=== PATIENT | male | born 1940 | race Caucasian/White ===

== ENCOUNTER 2022-06-23 14:15 | Outpatient (RCR) | payer MEDICARE, SELFPAY ==
[2022-06-09 14:28] VITALS: BP 169/79; PULSE 77; TEMP 36.2; BMI 26.4
--- NOTE | 2022-06-09 15:52 | HP.PCM_ITS ---
History of Present Illness Date of Service: 06/09/22 Chief Complaint: Ulcers on right leg and foot History of Wound: Patient is a 81 male who presents for evaluation of the ulcer on his right anterior leg and right dorsal foot. He states that they opened up 3 weeks ago. He does has issues with leg edema for the past couple months. He went to his PCP, Dr. Zaldivar, on 06/02/22 and he started him on Augmentin, ordered vascular studies and referred him to the wound center. Patient has been covering the ulcer with gauze. He has a history of cardiac stent, DM type 2 diet controlled, BPH, HTN, Cardiac stents, uses an inhaler, smokes little cigars 4- 5/day x 65 years. 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 He states that they will be moving to [place] sometime in the next several months to be closer to their daughter. He denies any fever, chills, nausea, vomiting. He states his appetite is good. Progress of Wound: Right anterior leg and right dorsal foot ulcers are superficial, weeping and very painful. [facility] Medical History Bilateral lower extremity edema Diabetes type 2, controlled Home Medications amoxicillin-pot clavulanate 06/09/22 [History Last Taken Unknown] finasteride 5 mg tablet 5 mg PO DAILY 06/09/22 [History Last Taken Unknown] furosemide 20 mg tablet 20 mg PO BID 06/09/22 [History Last Taken Unknown] metoprolol succ 50 mg-hydrochlorothiazide 12.5 mg tablet,ext.rel 24 hr tab PO 06/09/22 [History Last Taken Unknown] mirabegron 25 mg tablet,extended release 24 hr (Myrbetriq) 25 mg PO DAILY 06/09/22 [History Last Taken Unknown] ramipril 10 mg capsule 10 mg PO BID 06/09/22 [History Last Taken Unknown] tamsulosin 0.4 mg capsule 0.4 mg PO DAILY 06/09/22 [History Last Taken Unknown] Family History (Updated 06/11/22 @ 15:37 by Susi Martines NP, [employer]CIAL SERVICES EDUCATION CONSULTANT-C) Mother Diabetes Father Myocardial infarction Brother Myocardial infarction Surgical History (Updated 06/11/22 @ 15:36 by Susi Martines NP, FINANCIAL SERVICES EDUCATION CONSULTANT-C) History of heart artery stent History of left inguinal hernia repair History of vasectomy Social History Smoking Status: Current every day smoker Tobacco: How many years used: 65 Smokeless tobacco user: other alcohol intake: current alcohol intake frequency: a few times a week ROS Constitutional Constitutional: Denies chills, fever(s), frequent falls or headache(s) Eyes Eyes: Reports requires corrective lenses ENT HEENT: Reports none Cardiovascular Cardiovascular: Reports as per HPI Respiratory/Chest Respiratory/Chest: Reports as per HPI; Denies cough or dyspnea Gastrointestinal Gastrointestinal: Reports none Genitourinary Genitourinary: Reports as per HPI, nocturia and urinary frequency Musculoskeletal Musculoskeletal: Reports as per HPI Integumentary Integumentary: Reports skin ulcer Neurologic Neurologic: Reports as per HPI Psychiatric Psychiatric: Reports none Vital Signs Vital Signs Vital Signs: 06/09/22 14:28 Temperature 97.1 F L Temperature Source Temporal Pulse Rate 77 Blood Pressure 169/79 H Blood Pressure Mean 109 Blood Pressure Source Monitor Weight Weight: 195 lb Body Mass Index (BMI) 26.4 Physical Exam Const alert, oriented x3 and no apparent distress General Appearance: cooperative Orientation / Consciousness: awake HEENT normocephalic Resp normal respiratory effort and normal air movement Auscultation: wheezes expiratory wheezes, inspiratory wheezes, scattered wheezes and throughout Cardio regular rate and regular rhythm GI soft to palpation and non-tender Extremity full ROM and normal capillary refill Extremity Narrative: bilateral edema +3, legs are weepy Skin Skin Narrative: left posterior leg has an area with dry, flaky skin. It is from an old blister from his edema. Wound Narrative: Right anterior lower leg ulcer is superficial, shiny, pink and painful to touch, it is oozing clear serous fluid. Right dorsal foot ulcer is superfial, pink and shiny. Psych mental status grossly normal and thought process normal Appearance: grossly normal Debridement Note Debridement Note Wound debrided: anterior leg ulcer Laterality: Right Type of Debridement: Excisional debridement Anesthesia Used: 4% Lidocaine Solution and 5% Lidocaine Gel Depth: Down to and including healthy tissue and in the subcutaneous layer Percentage of wound debrided: 100 Instrument Used: 7mm curette Tissue Removed: Devitalized tissue and slough Severity: Fat Layer Exposed Amount of bleeding with debridement: Mild Bleeding Controlled with: Pressure and Compression and gauze Patient tolerated procedure: Patient tolerated procedure well Post-Debridement Measurements and Additional Note: Post-Debridement Measurements/Treatment - Nurse 1 - General Ulcer Assessment Start: 06/09/22 14:27 Freq: Status: Active Protocol: SHU Activity Type Activity Date Activity User E-sign Co-sign Detail Recorded Client Recorded Date Recorded By Document 06/09/22 14:28 MÓNICA [id number] 06/09/22 14:33 DC 06/09/22 14:28 - Today's Visit Information Type of service Initial Visit Arrival Mode Ambulatory,Cane Patient Identification Verified (Name & Yes ) Height and Weight Height 6 ft Weight 195 lb Weight in Pounds 195.0 lbs Weight Measurement Method Estimated by Patient Body Mass Index (BMI) 26.4 BMI Classification Overweight BSA - Armand 2.11 Vital Signs Temperature (97.8 F-99.1 F) 97.1 F L Temperature Source Temporal Pulse Rate (60-100) 77 Pulse Location Monitor Blood Pressure (90/60-120/80) 169/79 H Blood Pressure Mean 109 Source Monitor Pain Scale: 0-10 Numeric Is Patient Pain Free? Yes - Nurse 1 - General Ulcer Measurement Start: 06/09/22 14:27 Freq: Status: Active Protocol: Activity Type Activity Date Activity User E-sign Co-sign Detail Recorded Client Recorded Date Recorded By Document 06/09/22 14:28 MÓNICA [id number] 06/09/22 14:33 DC 06/09/22 14:28 Wound Center Nurse 1 #2 R dorsal foot -Combined with other wound No -Current Size (cm) - Length 4.7 -Current Size (cm) - Width 5.3 -Current Size (cm) - Depth 0.1 -Total Square Cm 24.91 -Date of Last Picture (Recall this 06/09/22 field) -Photo Taken Yes -Tunneling No -Undermining/Tunneling No -Circular Undermining No -Classification - Thickness Partial Thickness -Change in Wound Grade/Stage No -Exudate Amt Large -Exudate Type Yellow/Green -Wound Margin Distinct, Outline Attached -Granulation Amt None Present (0 %) -Slough/Fibrin Yes -Necrosis Amt Medium (34-66%) -Necrotic Tissue Type Adherent Slough -Structure Exposed N/A -Texture (Herlinda-wound Skin Appearance) Assessed, Excoriation -Moisture (Herlinda-wound Skin Appearance) Assessed, Weeping -Color (Herlinda-wound Skin Appearance) No Abnormality, Assessed -Temperature (Herlinda-wound Skin No Abnormality Appearance) (Pt Warm) -Tenderness on Palpation (Herlinda-wound No Skin Appearance) -Ulcer Cleansing Soap and Water -Foul Odor after Cleansing No -Anesthetic Used 4% Lidocaine Solution #1 RLE -Combined with other wound No -Current Size (cm) - Length 14.7 -Current Size (cm) - Width 15.1 -Current Size (cm) - Depth 0.1 -Total Square Cm 221.97 -Date of Last Picture (Recall this 06/09/22 field) -Photo Taken Yes -Epithelialization None Present -Tunneling No -Undermining/Tunneling No -Circular Undermining No -Change in Wound Grade/Stage No -Exudate Amt Large -Exudate Type Serosanguineous -Wound Margin Distinct, Outline Attached -Granulation Amt None Present (0 %) -Slough/Fibrin No -Necrosis Amt Small (1-33%) -Necrotic Tissue Type Adherent Slough -Structure Exposed N/A -Texture (Herlinda-wound Skin Appearance) Assessed, Excoriation -Moisture (Herlinda-wound Skin Appearance) Assessed, Weeping -Color (Herlnida-wound Skin Appearance) No Abnormality, Assessed -Temperature (Herlinda-wound Skin No Abnormality Appearance) (Pt Warm) -Tenderness on Palpation (Herlinda-wound No Skin Appearance) -Ulcer Cleansing Soap and Water -Foul Odor after Cleansing No -Anesthetic Used 4% Lidocaine Solution Lower Limb Edema Present No Right Calf (cm) 43.4 Right Ankle (cm) 28.2 Left Calf (cm) 38 Left Ankle (cm) 24.4 WC - Nurse 2 - General Ulcer CM Notes Start: 06/09/22 14:27 Freq: Status: Active Protocol: Activity Type Activity Date Activity User E-sign Co-sign Detail Recorded Client Recorded Date Recorded By Document 06/09/22 14:52 MW [id number] 06/09/22 15:02 MW 06/09/22 14:52 Wound Center Nurse 2 #2 R dorsal foot -Time 14:52 -Correct Patient Yes -Correct Side, Site, Position Yes -Correct Procedure Yes -Procedure Performed Yes -Type of Procedure Debridement -Clinical Debridement Subcutaneous -Tissue Removed Subcutaneous -Post Debridement (cm) - Length 7.5 -Post Debridement (cm) - Width 6.0 -Post Debridement (cm) - Depth 0.1 -Total Square (Post) (cm) 45.00 -Area of Debridement (cm) - Length 7.5 -Area of Debridement (cm) - Width 6.0 -Total Square (Area) (cm) 45.00 -Tunneling No -Undermining/Tunneling No -Circular Undermining No -Wound/Ulcer Outcome Not Healed -Ulcer Cleansing Rinsed/ Irrigated with Saline -Foul Odor after Cleansing No -Bioengineered Tissue No -Bleeding Controlled with Pressure -Treatment Response Procedure Tolerated Well -Offloading No -Debridement - Subq, 1st 20sq cm Yes -Debridement, SubQ, ea addt'l 20sq cm 2 or part thereof #1 RLE -Time 14:53 -Correct Patient Yes -Correct Side, Site, Position Yes -Correct Procedure Yes -Procedure Performed Yes -Type of Procedure Debridement -Clinical Debridement Subcutaneous -Tissue Removed Subcutaneous -Post Debridement (cm) - Length 15.5 -Post Debridement (cm) - Width 14.5 -Post Debridement (cm) - Depth 0.1 -Total Square (Post) (cm) 224.75 -Area of Debridement (cm) - Length 15.5 -Area of Debridement (cm) - Width 14.5 -Total Square (Area) (cm) 224.75 -Tunneling No -Undermining/Tunneling No -Circular Undermining No -Wound/Ulcer Outcome Not Healed -Ulcer Cleansing Rinsed/ Irrigated with Saline -Foul Odor after Cleansing No -Bioengineered Tissue No -Bleeding Controlled with Pressure -Treatment Response Procedure Tolerated Well -Offloading No -Debridement - Subq, 1st 20sq cm No -Debridement, SubQ, ea addt'l 20sq cm 11 or part thereof Pain Scale: 0-10 Numeric Is Patient Pain Free? Yes WC - Nurse 3 - General Ulcer D/C NN Start: 06/09/22 14:27 Freq: Status: Active Protocol: Activity Type Activity Date Activity User E-sign Co-sign Detail Recorded Client Recorded Date Recorded By Document 06/09/22 15:15 AK [id number] 06/09/22 15:21 AK Document 06/09/22 15:20 [facility] [id number] 06/09/22 15:21 BMF 06/09/22 06/09/22 15:15 15:20 Wound Care Nurse 3 #2 R dorsal foot -Ulcer Cleansing Soap and Water Rinsed/ Irrigated with Saline -Foul Odor after Cleansing No No -Negative Pressure Wound Therapy N/A -Primary Dressing Applied Aquacel AG 4x4 Aquacel AG 4x4, Optilok 6.5x10 -Primary Dressing Covered/Secured with Dry Gauze & Dry Gauze & Roll Gauze, Roll Gauze, Secured with Secured with Tape Tape -Aquacel AG 4x4 4 1 -Optilok 6.5x10 1 #1 RLE -Ulcer Cleansing Soap and Water Rinsed/ Irrigated with Saline -Foul Odor after Cleansing No No -Negative Pressure Wound Therapy N/A -Primary Dressing Applied Aquacel AG 4x4 Aquacel AG 4x4, Optilok 8x12 -Primary Dressing Covered/Secured with Dry Gauze & Dry Gauze & Roll Gauze, Roll Gauze, Secured with Secured with Tape Tape -Aquacel AG 4x4 0 0 -Optilok 8x12 1 Right -Tubular Bandage Single Layer -Size of Tubigrip Used Size F -Size F ($) 2 -Other SENT EXTRA D/T ^ DRAINAGE Treatment Response Procedure Tolerated Well Pain Scale: 0-10 Numeric Is Patient Pain Free? Yes Yes WC - Visit Discharge Discharge Condition Stable Stable Ambulatory Status Ambulatory,Cane Ambulatory,Cane ,Unsteady Transportation Private Auto Private Auto Medication Reconcilliation completed & Yes provided to patient/care provider Clinical Summary of Care Provided Yes Additional Wound Wound debrided: doral foot ulcer Laterality: Right Type of Debridement: Excisional debridement Anesthesia Used: 4% Lidocaine Solution and 5% Lidocaine Gel Depth: Down to and including healthy tissue and in the subcutaneous layer Percentage of wound debrided: 100 Instrument Used: 5mm curette Tissue Removed: Devitalized tissue and slough Severity: Fat Layer Exposed Amount of bleeding with debridement: Mild Bleeding Controlled with: Pressure and Compression and gauze Patient tolerated procedure: Patient tolerated procedure well Charges/Coding Visit Charges Office Visits / Consults: [id number] OV L4 New (25 modifier) Procedures Integumentary [id number]: [id number] Elen subq tissue 20 sq cm/< Add On Codes: [id number] Elen subq tissue add-on (x13) Assessment/Plan Assessment/Plan (1) Ulcer of right lower extremity: CODE(S): L97.919 - Non-pressure chronic ulcer of unspecified part of right lower leg with unspecified severity (2) Ulcer of right foot limited to breakdown of skin: CODE(S): L97.511 - Non-pressure chronic ulcer of other part of right foot limited to breakdown of skin (3) Bilateral lower extremity edema: CODE(S): R60.0 - Localized edema (4) Diabetes type 2, controlled: CODE(S): E11.9 - Type 2 diabetes mellitus without complications (5) Cigar smoker: CODE(S): F17.290 - Nicotine dependence, other tobacco product, uncomplicated PLAN: Plan Patient was evaluated at the wound center today. Subcutaneous debridement was performed. He has had venous studies done at another hospital. We will attempt to get a co py of those results. He states he has ordered arterial studies but they have not been approved by insurance. We will also order arterial studies to be done. Wound care - Aquacel-Ag covered by super absorber/ABD daily to right dorsal foot and right anterior leg ulcer. To left posterior leg, place lotion daily to dry, flaky skin. Compression with be single layer tubigrip Encouraged elevating legs when sitting and avoid standing for long periods of time. Increase protein intake and start taking Vitamin C 1,000mg daily. Follow up one week.
[2022-06-16 14:07] VITALS: BP 113/63; PULSE 73; TEMP 36.1; BMI 26.4
--- NOTE | 2022-06-16 16:00 | PN.PCM_ITS ---
History of Present Illness Date of Service: 06/16/22 Chief Complaint: Ulcers on right leg and foot History of Wound: Patient is a 81 male who presents for evaluation of the ulcer on his right anterior leg and right dorsal foot. He states that they opened up 3 weeks ago. He does has issues with leg edema for the past couple months. He went to his PCP, Dr. Zaldivar, on 06/02/22 and he started him on Augmentin, ordered vascular studies and referred him to the wound center. Patient has been covering the ulcer with gauze. He has a history of cardiac stent, DM type 2 diet controlled, BPH, HTN, Cardiac stents, uses an inhaler, smokes little cigars 4- 5/day x 65 years. 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 He states that they will be moving to [place] sometime in the next several months to be closer to their daughter. Wound care - Aquacel-Ag topped by gauze daily after washing with soap and water. Will use CHAVEZ wrap for compression. Venous study done at [place] was negative for DVT. He denies any fever, chills, nausea, vomiting. He states his appetite is good. Progress of Wound: Right anterior leg and right dorsal foot cluster ulcers are superficial, weeping and very painful. Objective Data Objective Data Vital Signs: Vital Signs Temp Pulse BP 97.0 F L 73 113/63 06/16/22 14:07 06/16/22 14:07 06/16/22 14:07 Weight: 195 lb Body Mass Index (BMI) 26.4 Charges/Coding Procedures Integumentary 111xxx-113xx: [id number] Elen subq tissue 20 sq cm/< Add On Codes: 72949 Elen subq tissue add-on (x 10) Physical Exam Const alert and oriented x3 General Appearance: cooperative HEENT normocephalic Resp normal respiratory effort Cardio regular rate Extremity full ROM and normal capillary refill Extremity Narrative: bilateral edema +2 Skin Wound Narrative: Right anterior lower leg ulcer is superficial, shiny, pink and painful to touch, it is oozing clear serous fluid. Right dorsal foot ulcer is shiny pink with serous drainage. Psych thought process normal Appearance: grossly normal Debridement Note Debridement Note Wound debrided: anterior leg ulcer Laterality: Right Type of Debridement: Excisional debridement Anesthesia Used: 4% Lidocaine Solution and 5% Lidocaine Gel Depth: Down to and including healthy tissue and in the subcutaneous layer Percentage of wound debrided: 100 Instrument Used: 5mm curette Tissue Removed: Devitalized tissue and slough Severity: Fat Layer Exposed Amount of bleeding with debridement: Mild Bleeding Controlled with: Pressure and Compression and gauze Patient tolerated procedure: Patient tolerated procedure well Post-Debridement Measurements and Additional Note: Post-Debridement Measurements/Treatment MAUREEN - Nurse 1 - General Ulcer Assessment Start: 06/09/22 14:27 Freq: Status: Active Protocol: SHU Activity Type Activity Date Activity User E-sign Co-sign Detail Recorded Client Recorded Date Recorded By Document 06/09/22 14:28 AK [id number] 06/09/22 14:33 AK Document 06/16/22 14:07 DANIELITO [id number] 06/16/22 14:15 DANIELITO 06/09/22 06/16/22 14:28 14:07 MAUREEN - Today's Visit Information Type of service Initial Visit Follow-up Visit (Physician/MECHANICAL SERVICE REPRESENTATIVE ) Arrival Mode Ambulatory,Cane Ambulatory Patient Identification Verified (Name & Yes Yes ) Height and Weight Height 6 ft Weight 195 lb Weight in Pounds 195.0 lbs Weight Measurement Method Estimated by Patient Body Mass Index (BMI) 26.4 26.4 BMI Classification Overweight Overweight BSA - Armand 2.11 Vital Signs Temperature (97.8 F-99.1 F) 97.1 F L 97.0 F L Temperature Source Temporal Temporal Pulse Rate (60-100) 77 73 Pulse Location Monitor Monitor Blood Pressure (90/60-120/80) 169/79 H 113/63 Blood Pressure Mean (mm Hg) 109 79 Source Monitor Monitor Position Sitting Blood Pressure Location Right Arm History Since Last Visit- (Skip if this is Patient's initial visit) Have you changed medications since your No last visit? Any new allergies or adverse reactions No Had a fall/change in ADL's that may No increase risk of falls Signs or symptoms of abuse and/or No neglect since last visit Have you been in the hospital since your No last visit? Has dressing in place as prescribed Yes Has offloadiing in place as prescribed N/A Experienced any changes in pain level or No management Left Footwear Regular Shoe Right Footwear Regular Shoe Pain Scale: 0-10 Numeric Is Patient Pain Free? Yes Yes MAUREEN Cardenas Nurse 1 - General Ulcer Measurement Start: 06/09/22 14:27 Freq: Status: Active Protocol: Activity Type Activity Date Activity User E-sign Co-sign Detail Recorded Client Recorded Date Recorded By Document 06/09/22 14:28 AK [id number] 06/09/22 14:33 AK Document 06/16/22 14:07 DANIELITO [id number] 06/16/22 14:15 KR 06/09/22 06/16/22 14:28 14:07 Wound Center Nurse 1 #2 R dorsal foot -Combined with other wound No -Current Size (cm) - Length 4.7 6 -Current Size (cm) - Width 5.3 6 -Current Size (cm) - Depth 0.1 0.1 -Total Square Cm 24.91 36 -Date of Last Picture (Recall this 06/09/22 field) -Photo Taken Yes -Tunneling No -Undermining/Tunneling No -Circular Undermining No -Classification - Thickness Partial Thickness -Change in Wound Grade/Stage No -Exudate Amt Large Medium -Exudate Type Yellow/Green Serosanguineous -Wound Margin Distinct, Distinct, Outline Outline Attached Attached -Granulation Amt None Present (0 Large (67-100%) %) -Granulation Quality Red -Slough/Fibrin Yes -Necrosis Amt Medium (34-66%) Medium (34-66%) -Necrotic Tissue Type Adherent Slough Adherent Slough -Structure Exposed N/A -Texture (Herlinda-wound Skin Appearance) Assessed, Assessed, Excoriation Scarring -Moisture (Herlinda-wound Skin Appearance) Assessed, No Abnormality, Weeping Assessed, Maceration -Color (Herlinda-wound Skin Appearance) No Abnormality, No Abnormality, Assessed Assessed -Temperature (Herlinda-wound Skin No Abnormality No Abnormality Appearance) (Pt Warm) (Pt Warm) -Tenderness on Palpation (Herlinda-wound No No Skin Appearance) -Ulcer Cleansing Soap and Water Rinsed/ Irrigated with Saline -Foul Odor after Cleansing No No -Anesthetic Used 4% Lidocaine 5% Lidocaine Solution Gel #1 RLE -Combined with other wound No -Current Size (cm) - Length 14.7 11.5 -Current Size (cm) - Width 15.1 10 -Current Size (cm) - Depth 0.1 0.2 -Total Square Cm 221.97 115.0 -Date of Last Picture (Recall this 06/09/22 field) -Photo Taken Yes -Epithelialization None Present -Tunneling No -Undermining/Tunneling No -Circular Undermining No -Change in Wound Grade/Stage No -Exudate Amt Large Large -Exudate Type Serosanguineous Serosanguineous -Wound Margin Distinct, Distinct, Outline Outline Attached Attached -Granulation Amt None Present (0 Medium (34-66%) %) -Granulation Quality Red -Slough/Fibrin No -Necrosis Amt Small (1-33%) Large (67-100%) -Necrotic Tissue Type Adherent Slough Adherent Slough -Structure Exposed N/A -Texture (Herlinda-wound Skin Appearance) Assessed, Assessed, Excoriation Scarring -Moisture (Herlinda-wound Skin Appearance) Assessed, Assessed, Weeping Maceration -Color (Herlinda-wound Skin Appearance) No Abnormality, No Abnormality, Assessed Assessed -Temperature (Herlinda-wound Skin No Abnormality No Abnormality Appearance) (Pt Warm) (Pt Warm) -Tenderness on Palpation (Herlinda-wound No No Skin Appearance) -Ulcer Cleansing Soap and Water Rinsed/ Irrigated with Saline -Foul Odor after Cleansing No No -Anesthetic Used 4% Lidocaine 4% Lidocaine Solution Solution,5% Lidocaine Gel Lower Limb Edema Present No Right Calf (cm) 43.4 Right Ankle (cm) 28.2 Left Calf (cm) 38 Left Ankle (cm) 24.4 WC - Nurse 2 - General Ulcer CM Notes Start: 06/09/22 14:27 Freq: Status: Active Protocol: Activity Type Activity Date Activity User E-sign Co-sign Detail Recorded Client Recorded Date Recorded By Document 06/09/22 14:52 MW [id number] 06/09/22 15:02 MW Document 06/16/22 14:39 MW [id number] 06/16/22 14:50 MW 06/09/22 06/16/22 14:52 14:39 Wound Center Nurse 2 #2 R dorsal foot -Time 14:52 14:41 -Correct Patient Yes Yes -Correct Side, Site, Position Yes Yes -Correct Procedure Yes Yes -Procedure Performed Yes Yes -Type of Procedure Debridement Debridement -Clinical Debridement Subcutaneous Subcutaneous -Tissue Removed Subcutaneous Subcutaneous -Post Debridement (cm) - Length 7.5 6.0 -Post Debridement (cm) - Width 6.0 4.5 -Post Debridement (cm) - Depth 0.1 0.1 -Total Square (Post) (cm) 45.00 27.00 -Area of Debridement (cm) - Length 7.5 6.0 -Area of Debridement (cm) - Width 6.0 4.5 -Total Square (Area) (cm) 45.00 27.00 -Tunneling No No -Undermining/Tunneling No No -Circular Undermining No No -Wound/Ulcer Outcome Not Healed Not Healed -Ulcer Cleansing Rinsed/ Rinsed/ Irrigated with Irrigated with Saline Saline -Foul Odor after Cleansing No No -Bioengineered Tissue No No -Bleeding Controlled with Pressure Pressure -Treatment Response Procedure Procedure Tolerated Well Tolerated Well -Offloading No No -Debridement - Subq, 1st 20sq cm Yes Yes -Debridement, SubQ, ea addt'l 20sq cm 2 or part thereof #1 RLE -Time 14:53 14:42 -Correct Patient Yes Yes -Correct Side, Site, Position Yes Yes -Correct Procedure Yes Yes -Procedure Performed Yes Yes -Type of Procedure Debridement Debridement -Clinical Debridement Subcutaneous Subcutaneous -Tissue Removed Subcutaneous Subcutaneous -Post Debridement (cm) - Length 15.5 14.0 -Post Debridement (cm) - Width 14.5 12.5 -Post Debridement (cm) - Depth 0.1 0.1 -Total Square (Post) (cm) 224.75 175.00 -Area of Debridement (cm) - Length 15.5 14.0 -Area of Debridement (cm) - Width 14.5 12.5 -Total Square (Area) (cm) 224.75 175.00 -Tunneling No No -Undermining/Tunneling No No -Circular Undermining No No -Wound/Ulcer Outcome Not Healed Not Healed -Ulcer Cleansing Rinsed/ Rinsed/ Irrigated with Irrigated with Saline Saline -Foul Odor after Cleansing No No -Bioengineered Tissue No No -Bleeding Controlled with Pressure Pressure -Treatment Response Procedure Procedure Tolerated Well Tolerated Well -Offloading No No -Debridement - Subq, 1st 20sq cm No No -Debridement, SubQ, ea addt'l 20sq cm 11 8 or part thereof Pain Scale: 0-10 Numeric Is Patient Pain Free? Yes Yes WC - Nurse 3 - General Ulcer D/C NN Start: 06/09/22 14:27 Freq: Status: Active Protocol: Activity Type Activity Date Activity User E-sign Co-sign Detail Recorded Client Recorded Date Recorded By Document 06/09/22 15:15 IA [id number] 06/09/22 15:21 IA Document 06/09/22 15:20 [facility] [id number] 06/09/22 15:21 [facility] 06/09/22 06/09/22 15:15 15:20 Wound Care Nurse 3 #2 R dorsal foot -Ulcer Cleansing Soap and Water Rinsed/ Irrigated with Saline -Foul Odor after Cleansing No No -Negative Pressure Wound Therapy N/A -Primary Dressing Applied Aquacel AG 4x4 Aquacel AG 4x4, Optilok 6.5x10 -Primary Dressing Covered/Secured with Dry Gauze & Dry Gauze & Roll Gauze, Roll Gauze, Secured with Secured with Tape Tape -Aquacel AG 4x4 4 1 -Optilok 6.5x10 1 #1 RLE -Ulcer Cleansing Soap and Water Rinsed/ Irrigated with Saline -Foul Odor after Cleansing No No -Negative Pressure Wound Therapy N/A -Primary Dressing Applied Aquacel AG 4x4 Aquacel AG 4x4, Optilok 8x12 -Primary Dressing Covered/Secured with Dry Gauze & Dry Gauze & Roll Gauze, Roll Gauze, Secured with Secured with Tape Tape -Aquacel AG 4x4 0 0 -Optilok 8x12 1 Right -Tubular Bandage Single Layer -Size of Tubigrip Used Size F -Size F ($) 2 -Other SENT EXTRA D/T ^ DRAINAGE Treatment Response Procedure Tolerated Well Pain Scale: 0-10 Numeric Is Patient Pain Free? Yes Yes WC - Visit Discharge Discharge Condition Stable Stable Ambulatory Status Ambulatory,Cane Ambulatory,Cane ,Unsteady Transportation Private Auto Private Auto Medication Reconcilliation completed & Yes provided to patient/care provider Clinical Summary of Care Provided Yes Additional Wound Wound debrided: doral foot ulcer Laterality: Right Type of Debridement: Excisional debridement Anesthesia Used: 4% Lidocaine Solution and 5% Lidocaine Gel Depth: Down to and including healthy tissue and in the subcutaneous layer Percentage of wound debrided: 100 Instrument Used: 5mm curette Tissue Removed: Devitalized tissue and slough Severity: Fat Layer Exposed Amount of bleeding with debridement: Mild Bleeding Controlled with: Pressure and Compression and gauze Patient tolerated procedure: Patient tolerated procedure well Assessment/Plan Assessment/Plan (1) Ulcer of right lower extremity: CODE(S): L97.919 - Non-pressure chronic ulcer of unspecified part of right lower leg with unspecified severity (2) Ulcer of right foot limited to breakdown of skin: CODE(S): L97.511 - Non-pressure chronic ulcer of other part of right foot limited to breakdown of skin (3) Bilateral lower extremity edema: CODE(S): R60.0 - Localized edema (4) Diabetes type 2, controlled: CODE(S): E11.9 - Type 2 diabetes mellitus without complications (5) Cigar smoker: CODE(S): F17.290 - Nicotine dependence, other tobacco product, uncomplicated PLAN: Plan Patient was evaluated at the wound center today. Subcutaneous debridement was performed. He has had venous studies done in [place], they showed not DVT. He states he had arterial studies yesterday, we will try to get results. Wound care - Aquacel-Ag covered by super absorber/ABD daily to right dorsal foot and right anterior leg cluster ulcers. Compression with be CHAVEZ wrap since he is having difficulty getting the tubigrip on himself. Encouraged elevating legs when sitting and avoid standing for long periods of time. Increase protein intake and start taking Vitamin C 1,000mg daily. Follow up one week.
[2022-06-23 14:32] VITALS: BP 108/66; PULSE 61; TEMP 36.6; BMI 26.4
--- NOTE | 2022-06-23 16:08 | PN.PCM_ITS ---
History of Present Illness Date of Service: 06/23/22 Chief Complaint: Ulcers on right leg and foot History of Wound: Patient is a 81 male who presents for evaluation of the ulcer on his right anterior leg and right dorsal foot. He states that they opened up 3 weeks ago. He does has issues with leg edema for the past couple months. He went to his PCP, Dr. Zaldivar, on 06/02/22 and he started him on Augmentin, ordered vascular studies and referred him to the wound center. Patient has been covering the ulcer with gauze. He has a history of cardiac stent, DM type 2 diet controlled, BPH, HTN, Cardiac stents, uses an inhaler, smokes little cigars 4- 5/day x 65 years. 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 He states that they will be moving to [place] sometime in the next several months to be closer to their daughter. Wound care - Aquacel-Ag topped by gauze daily after washing with soap and water. Will use PARTH wrap for compression. Venous study done at [facility] was negative for DVT. He denies any fever, chills, nausea, vomiting. He states his appetite is good. Progress of Wound: Right anterior leg and right dorsal foot cluster ulcers are superficial, weeping and very painful. Objective Data Objective Data Vital Signs: Vital Signs Temp Pulse BP 97.8 F 61 108/66 06/23/22 14:32 06/23/22 14:32 06/23/22 14:32 Weight: 195 lb Body Mass Index (BMI) 26.4 Charges/Coding Procedures Integumentary 111xxx-113xx: 88177 Elen subq tissue 20 sq cm/< Add On Codes: 33178 Elen subq tissue add-on (x6) Physical Exam Const alert and oriented x3 General Appearance: cooperative HEENT normocephalic Resp normal respiratory effort Cardio regular rate Extremity full ROM and normal capillary refill Extremity Narrative: bilateral edema +2 Skin Wound Narrative: Right anterior lower leg ulcer is superficial, shiny, pink and painful to touch, it is oozing clear serous fluid. Right dorsal foot ulcer is shiny pink with serous drainage. Neuro CN's II-XII intact bilaterally Psych thought process normal Appearance: grossly normal Debridement Note Debridement Note Wound debrided: anterior leg ulcer Laterality: Right Type of Debridement: Excisional debridement Anesthesia Used: 4% Lidocaine Solution and 5% Lidocaine Gel Depth: Down to and including healthy tissue and in the subcutaneous layer Percentage of wound debrided: 100 Instrument Used: 5mm curette Tissue Removed: Devitalized tissue and slough Severity: Fat Layer Exposed Amount of bleeding with debridement: Mild Bleeding Controlled with: Pressure and Compression and gauze Patient tolerated procedure: Patient tolerated procedure well Post-Debridement Measurements and Additional Note: Post-Debridement Measurements/Treatment WC - Nurse 1 - General Ulcer Assessment Start: 06/09/22 14:27 Freq: Status: Active Protocol: SHU Activity Type Activity Date Activity User E-sign Co-sign Detail Recorded Client Recorded Date Recorded By Document 06/09/22 14:28 AK [id number] 06/09/22 14:33 AK Document 06/16/22 14:07 KR [id number] 06/16/22 14:15 KR Document 06/23/22 14:32 KR [id number] 06/23/22 14:36 KR 06/09/22 06/16/22 06/23/22 14:28 14:07 14:32 WC - Today's Visit Information Type of service Initial Visit Follow-up Visit Follow-up Visit (Physician/TRAVELING OPERATOR (Physician/TRAVELING OPERATOR ) ) Arrival Mode Ambulatory,Cane Ambulatory Ambulatory,Cane Patient Identification Verified (Name & Yes Yes Yes ) Height and Weight Height 6 ft Weight 195 lb Weight in Pounds 195.0 lbs Weight Measurement Method Estimated by Patient Body Mass Index (BMI) 26.4 26.4 26.4 BMI Classification Overweight Overweight Overweight BSA - Armand 2.11 Vital Signs Temperature (97.8 F-99.1 F) 97.1 F L 97.0 F L 97.8 F Temperature Source Temporal Temporal Temporal Pulse Rate (60-100) 77 73 61 Pulse Location Monitor Monitor Monitor Blood Pressure (90/60-120/80) 169/79 H 113/63 108/66 Blood Pressure Mean (mm Hg) 109 79 80 Source Monitor Monitor Monitor Position Sitting Semi-Fowlers Blood Pressure Location Right Arm Right Arm History Since Last Visit- (Skip if this is Patient's initial visit) Have you changed medications since your No No last visit? Any new allergies or adverse reactions No No Had a fall/change in ADL's that may No No increase risk of falls Signs or symptoms of abuse and/or No No neglect since last visit Have you been in the hospital since your No No last visit? Has dressing in place as prescribed Yes Yes Has compression in place as prescribed Yes Has offloadiing in place as prescribed N/A N/A Experienced any changes in pain level or No No management Left Footwear Regular Shoe Regular Shoe Right Footwear Regular Shoe Regular Shoe Pain Scale: 0-10 Numeric Is Patient Pain Free? Yes Yes Yes WC - Nurse 1 - General Ulcer Measurement Start: 06/09/22 14:27 Freq: Status: Active Protocol: Activity Type Activity Date Activity User E-sign Co-sign Detail Recorded Client Recorded Date Recorded By Document 06/09/22 14:28 AK [id number] 06/09/22 14:33 AK Document 06/16/22 14:07 KR [id number] 06/16/22 14:15 KR Document 06/23/22 14:32 KR [id number] 06/23/22 14:36 KR 06/09/22 06/16/22 06/23/22 14:28 14:07 14:32 Wound Center Nurse 1 #2 R dorsal foot -Combined with other wound No -Current Size (cm) - Length 4.7 6 3.5 -Current Size (cm) - Width 5.3 6 4 -Current Size (cm) - Depth 0.1 0.1 0.1 -Total Square Cm 24.91 36 14.0 -Date of Last Picture (Recall this 06/09/22 field) -Photo Taken Yes -Tunneling No -Undermining/Tunneling No -Circular Undermining No -Classification - Thickness Partial Thickness -Change in Wound Grade/Stage No -Exudate Amt Large Medium Medium -Exudate Type Yellow/Green Serosanguineous Serosanguineous -Wound Margin Distinct, Distinct, Distinct, Outline Outline Outline Attached Attached Attached -Granulation Amt None Present (0 Large (67-100%) Medium (34-66%) %) -Granulation Quality Red Red -Slough/Fibrin Yes -Necrosis Amt Medium (34-66%) Medium (34-66%) Medium (34-66%) -Necrotic Tissue Type Adherent Slough Adherent Slough Adherent Slough -Structure Exposed N/A -Texture (Herlinda-wound Skin Appearance) Assessed, Assessed, Assessed, Excoriation Scarring Scarring -Moisture (Herlinda-wound Skin Appearance) Assessed, No Abnormality, No Abnormality, Weeping Assessed, Assessed Maceration -Color (Herlinda-wound Skin Appearance) No Abnormality, No Abnormality, No Abnormality, Assessed Assessed Assessed -Temperature (Herlinda-wound Skin No Abnormality No Abnormality No Abnormality Appearance) (Pt Warm) (Pt Warm) (Pt Warm) -Tenderness on Palpation (Herlinda-wound No No No Skin Appearance) -Ulcer Cleansing Soap and Water Rinsed/ Rinsed/ Irrigated with Irrigated with Saline Saline -Foul Odor after Cleansing No No No -Anesthetic Used 4% Lidocaine 5% Lidocaine 5% Lidocaine Solution Gel Gel #1 RLE -Combined with other wound No -Current Size (cm) - Length 14.7 11.5 16 -Current Size (cm) - Width 15.1 10 13 -Current Size (cm) - Depth 0.1 0.2 0.1 -Total Square Cm 221.97 115.0 208 -Date of Last Picture (Recall this 06/09/22 field) -Photo Taken Yes -Epithelialization None Present -Tunneling No -Undermining/Tunneling No -Circular Undermining No -Change in Wound Grade/Stage No -Exudate Amt Large Large -Exudate Type Serosanguineous Serosanguineous -Wound Margin Distinct, Distinct, Distinct, Outline Outline Outline Attached Attached Attached -Granulation Amt None Present (0 Medium (34-66%) Large (67-100%) %) -Granulation Quality Red Red -Slough/Fibrin No -Necrosis Amt Small (1-33%) Large (67-100%) Large (67-100%) -Necrotic Tissue Type Adherent Slough Adherent Slough Adherent Slough -Structure Exposed N/A -Texture (Herlinda-wound Skin Appearance) Assessed, Assessed, Assessed, Excoriation Scarring Scarring -Moisture (Herlinda-wound Skin Appearance) Assessed, Assessed, No Abnormality, Weeping Maceration Assessed -Color (Herlinda-wound Skin Appearance) No Abnormality, No Abnormality, No Abnormality, Assessed Assessed Assessed -Temperature (Herlinda-wound Skin No Abnormality No Abnormality Appearance) (Pt Warm) (Pt Warm) -Tenderness on Palpation (Herlinda-wound No No No Skin Appearance) -Ulcer Cleansing Soap and Water Rinsed/ Rinsed/ Irrigated with Irrigated with Saline Saline -Foul Odor after Cleansing No No No -Anesthetic Used 4% Lidocaine 4% Lidocaine 5% Lidocaine Solution Solution,5% Gel Lidocaine Gel Lower Limb Edema Present No Right Calf (cm) 43.4 Right Ankle (cm) 28.2 Left Calf (cm) 38 Left Ankle (cm) 24.4 WC - Nurse 2 - General Ulcer CM Notes Start: 06/09/22 14:27 Freq: Status: Active Protocol: Activity Type Activity Date Activity User E-sign Co-sign Detail Recorded Client Recorded Date Recorded By Document 06/09/22 14:52 MW [id number] 06/09/22 15:02 MW Document 06/16/22 14:39 MW [id number] 06/16/22 14:50 MW Document 06/23/22 15:07 MW [id number] 06/23/22 15:14 MW 06/09/22 06/16/22 06/23/22 14:52 14:39 15:07 Wound Center Nurse 2 #2 R dorsal foot -Time 14:52 14:41 15:07 -Correct Patient Yes Yes Yes -Correct Side, Site, Position Yes Yes Yes -Correct Procedure Yes Yes Yes -Procedure Performed Yes Yes Yes -Type of Procedure Debridement Debridement Debridement -Clinical Debridement Subcutaneous Subcutaneous Subcutaneous -Tissue Removed Subcutaneous Subcutaneous Subcutaneous -Post Debridement (cm) - Length 7.5 6.0 1.0 -Post Debridement (cm) - Width 6.0 4.5 2.3 -Post Debridement (cm) - Depth 0.1 0.1 0.1 -Total Square (Post) (cm) 45.00 27.00 2.30 -Area of Debridement (cm) - Length 7.5 6.0 1.0 -Area of Debridement (cm) - Width 6.0 4.5 2.3 -Total Square (Area) (cm) 45.00 27.00 2.30 -Tunneling No No No -Undermining/Tunneling No No No -Circular Undermining No No No -Wound/Ulcer Outcome Not Healed Not Healed Not Healed -Ulcer Cleansing Rinsed/ Rinsed/ Rinsed/ Irrigated with Irrigated with Irrigated with Saline Saline Saline -Foul Odor after Cleansing No No No -Bioengineered Tissue No No No -Bleeding Controlled with Pressure Pressure Pressure -Treatment Response Procedure Procedure Procedure Tolerated Well Tolerated Well Tolerated Well -Offloading No No No -Debridement - Subq, 1st 20sq cm Yes Yes Yes -Debridement, SubQ, ea addt'l 20sq cm 2 or part thereof #1 RLE -Time 14:53 14:42 15:07 -Correct Patient Yes Yes Yes -Correct Side, Site, Position Yes Yes Yes -Correct Procedure Yes Yes Yes -Procedure Performed Yes Yes Yes -Type of Procedure Debridement Debridement Debridement -Clinical Debridement Subcutaneous Subcutaneous Subcutaneous -Tissue Removed Subcutaneous Subcutaneous Subcutaneous -Post Debridement (cm) - Length 15.5 14.0 12.0 -Post Debridement (cm) - Width 14.5 12.5 11.5 -Post Debridement (cm) - Depth 0.1 0.1 0.1 -Total Square (Post) (cm) 224.75 175.00 138.00 -Area of Debridement (cm) - Length 15.5 14.0 12.0 -Area of Debridement (cm) - Width 14.5 12.5 11.5 -Total Square (Area) (cm) 224.75 175.00 138.00 -Tunneling No No No -Undermining/Tunneling No No No -Circular Undermining No No No -Wound/Ulcer Outcome Not Healed Not Healed Not Healed -Ulcer Cleansing Rinsed/ Rinsed/ Rinsed/ Irrigated with Irrigated with Irrigated with Saline Saline Saline -Foul Odor after Cleansing No No No -Bioengineered Tissue No No No -Bleeding Controlled with Pressure Pressure Pressure -Treatment Response Procedure Procedure Procedure Tolerated Well Tolerated Well Tolerated Well -Offloading No No -Debridement - Subq, 1st 20sq cm No No No -Debridement, SubQ, ea addt'l 20sq cm 11 8 or part thereof Pain Scale: 0-10 Numeric Is Patient Pain Free? Yes Yes Yes - Nurse 3 - General Ulcer D/C NN Start: 06/09/22 14:27 Freq: Status: Active Protocol: Activity Type Activity Date Activity User E-sign Co-sign Detail Recorded Client Recorded Date Recorded By Document 06/09/22 15:15 AK [id number] 06/09/22 15:21 MT Document 06/09/22 15:20 [facility] [id number] 06/09/22 15:21 [facility] Document 06/23/22 15:25 MT [id number] 06/23/22 15:26 AK 06/09/22 06/09/22 06/23/22 15:15 15:20 15:25 Wound Care Nurse 3 #2 R dorsal foot -Ulcer Cleansing Soap and Water Rinsed/ Rinsed/ Irrigated with Irrigated with Saline Saline -Foul Odor after Cleansing No No No -Negative Pressure Wound Therapy N/A N/A -Primary Dressing Applied Aquacel AG 4x4 Aquacel AG 4x4, Aquacel AG 4x4, Optilok 6.5x10 Optilok 8x12 -Primary Dressing Covered/Secured with Dry Gauze & Dry Gauze & Dry Gauze & Roll Gauze, Roll Gauze, Roll Gauze, Secured with Secured with Secured with Tape Tape Tape -Aquacel AG 4x4 4 1 1 -Optilok 6.5x10 1 -Optilok 8x12 1 #1 RLE -Ulcer Cleansing Soap and Water Rinsed/ Rinsed/ Irrigated with Irrigated with Saline Saline -Foul Odor after Cleansing No No No -Negative Pressure Wound Therapy N/A N/A -Primary Dressing Applied Aquacel AG 4x4 Aquacel AG 4x4, Aquacel AG 4x4 Optilok 8x12 -Primary Dressing Covered/Secured with Dry Gauze & Dry Gauze & Dry Gauze & Roll Gauze, Roll Gauze, Roll Gauze, Secured with Secured with Secured with Tape Tape Tape -Aquacel AG 4x4 0 0 0 -Optilok 8x12 1 Right -Lotion applied to leg before No compression wrap -Compression Wrap Parth Wrap -Tubular Bandage Single Layer -Size of Tubigrip Used Size F -Size F ($) 2 -Other SENT EXTRA D/T ^ DRAINAGE Treatment Response Procedure Tolerated Well Pain Scale: 0-10 Numeric Is Patient Pain Free? Yes Yes Yes WC - Visit Discharge Discharge Condition Stable Stable Stable Ambulatory Status Ambulatory,Cane Ambulatory,Cane Ambulatory,Cane ,Unsteady Transportation Private Auto Private Auto Private Auto Medication Reconcilliation completed & Yes Yes provided to patient/care provider Clinical Summary of Care Provided Yes Yes Additional Wound Wound debrided: doral foot ulcer Laterality: Right Type of Debridement: Excisional debridement Anesthesia Used: 4% Lidocaine Solution and 5% Lidocaine Gel Depth: Down to and including healthy tissue and in the subcutaneous layer Percentage of wound debrided: 100 Instrument Used: 5mm curette Tissue Removed: Devitalized tissue and slough Severity: Fat Layer Exposed Amount of bleeding with debridement: Mild Bleeding Controlled with: Pressure and Compression and gauze Patient tolerated procedure: Patient tolerated procedure well Assessment/Plan Assessment/Plan (1) Ulcer of right lower extremity: CODE(S): L97.919 - Non-pressure chronic ulcer of unspecified part of right lower leg with unspecified severity (2) Ulcer of right foot limited to breakdown of skin: CODE(S): L97.511 - Non-pressure chronic ulcer of other part of right foot limited to breakdown of skin (3) Bilateral lower extremity edema: CODE(S): R60.0 - Localized edema (4) Diabetes type 2, controlled: CODE(S): E11.9 - Type 2 diabetes mellitus without complications (5) Cigar smoker: CODE(S): F17.290 - Nicotine dependence, other tobacco product, uncomplic ated PLAN: Plan Patient was evaluated at the wound center today. Subcutaneous debridement was performed. He has had venous studies done in [place], they showed not DVT. He states he had arterial studies done, we will try to get results. Wound care - Aquacel-Ag covered by super absorber/ABD daily to right dorsal foot and right anterior leg cluster ulcers. Compression with be PARTH wrap since he is having difficulty getting the tubigrip on himself. Encouraged elevating legs when sitting and avoid standing for long periods of time. Increase protein intake and start taking Vitamin C 1,000mg daily. Follow up one week.
== END 2022-06-23 23:59 | disposition home or self-care (01) ==
LOC: WC 14:15
PROVIDERS: PCP Internal Medicine; Visit Provider Nurse Practitioner Family
DX: E11.621 Type 2 diabetes mellitus with foot ulcer (principal); L97.912 Non-pressure chronic ulcer of unspecified part of right lower leg with fat layer exposed; L97.511 Non-pressure chronic ulcer of other part of right foot limited to breakdown of skin; F17.290 Nicotine dependence, other tobacco product, uncomplicated; R60.0 Localized edema; F17.220 Nicotine dependence, chewing tobacco, uncomplicated; I10 Essential (primary) hypertension; M79.604 Pain in right leg
CPT/HCPCS: 11042; 11045; 87070; 87075; 87077; 87186; 87205; 99203; G0463

== ENCOUNTER 2022-07-21 13:30 | Outpatient (RCR) | payer MEDICARE, SELFPAY ==
[2022-06-24 00:46] VITALS: BP 108/66; PULSE 61; TEMP 36.6; BMI 26.4
[2022-06-30 14:59] VITALS: BP 149/77; PULSE 78; TEMP 36.3; BMI 26.4
--- NOTE | 2022-06-30 16:29 | PCM.WC.PN ---
History of Present Illness Date of Service: 06/30/22 Chief Complaint: Ulcers on right leg and foot History of Wound: Patient is a 81 male who presents for evaluation of the ulcer on his right anterior leg and right dorsal foot. He states that they opened up 3 weeks ago. He does has issues with leg edema for the past couple months. He went to his PCP, Dr. Zaldivar, on 06/02/22 and he started him on Augmentin, ordered vascular studies and referred him to the wound center. Patient has been covering the ulcer with gauze. He has a history of cardiac stent, DM type 2 diet controlled, BPH, HTN, Cardiac stents, uses an inhaler, smokes little cigars 4-5/day x 65 years. 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 He states that they will be moving to [place] sometime in the next several months to be closer to their daughter. Wound care - Aquacel-Ag topped by gauze daily after washing with soap and water. Will use 3M 2 layer wrap. Venous study done at [facility] from 06/02/22 were negative for acute DVT bilaterally and all veins were compressible. Arterial studies done in [place] from 06/15/22 showed right PURA 0.87 and left PURA 1.04. 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 Decreased digital perfusion noted. Biphasic flow in noted in the right popliteal artery, right posterior tibial artery and right dorsalis pedis artery. Triphasic flow is noted in the right common femoral artery. Left lower PVR showed no evidence of arterial occlusive disease, normal digital perfusion, triphasic flow in the left common femoral, popliteal, posterior tibial and dorsalis pedis arteries. Comparison study from 02/09/21 showed decrease in distal pressures in the right lower extremity. Cardiac echo done in [place] on 06/15/22 showed normal LVF, mild aortic valve regurgitation, positive bubble study for a small PFO (=10 bubbles) was demonstrated. He denies any fever, chills, nausea, vomiting. He states his appetite is good. Progress of Wound: Right dorsal foot ulcer and right anterior/lateral ulcers have have improved. Needs better compression. Objective Data Objective Data Vital Signs: Vital Signs Temp Pulse BP 97.4 F L 78 149/77 H 06/30/22 14:59 06/30/22 14:59 06/30/22 14:59 Weight: 195 lb Body Mass Index (BMI) 26.4 Physical Exam Const alert and oriented x3 General Appearance: cooperative HEENT normocephalic Resp normal respiratory effort Cardio regular rate Extremity full ROM and normal capillary refill Extremity Narrative: bilateral edema +2. Bilateral pedal pulses +2 palpabable. Skin Wound Narrative: Right anterior lower leg ulcer is superficial, shiny, pink and painful to touch, it is oozing clear serous fluid. Right dorsal foot ulcer is shiny pink with serous drainage. Neuro CN's II-XII intact bilaterally Psych thought process normal Appearance: grossly normal Debridement Note Debridement Note Wound debrided: anterior leg ulcer Laterality: Right Type of Debridement: Excisional debridement Anesthesia Used: 4% Lidocaine Solution and 5% Lidocaine Gel Depth: Down to and including healthy tissue and in the subcutaneous layer Percentage of wound debrided: 100 Instrument Used: 5mm curette Tissue Removed: Devitalized tissue and slough Severity: Fat Layer Exposed Amount of bleeding with debridement: Mild Bleeding Controlled with: Pressure and Compression and gauze Patient tolerated procedure: Patient tolerated procedure well Post-Debridement Measurements and Additional Note: Post-Debridement Measurements/Treatment WC - Nurse 1 - General Ulcer Assessment Start: 06/30/22 14:59 Freq: Status: Active Protocol: SHU Activity Type Activity Date Activity User E-sign Co-sign Detail Recorded Client Recorded Date Recorded By Document 06/30/22 14:59 [id number] 06/30/22 15:01 DANIELITO 06/30/22 14:59 WC - Today's Visit Information Type of service Follow-up Visit (Physician/GED TEACHER ) Arrival Mode Ambulatory,Cane Patient Identification Verified (Name & Yes ) Height and Weight Body Mass Index (BMI) 26.4 BMI Classification Overweight Vital Signs Temperature (97.8 F-99.1 F) 97.4 F L Temperature Source Temporal Pulse Rate (60-100) 78 Pulse Location Monitor Blood Pressure (90/60-120/80) 149/77 H Blood Pressure Mean (mm Hg) 101 Source Monitor Position Semi-Fowlers Blood Pressure Location Right Arm History Since Last Visit- (Skip if this is Patient's initial visit) Have you changed medications since your No last visit? Any new allergies or adverse reactions No Had a fall/change in ADL's that may No increase risk of falls Signs or symptoms of abuse and/or No neglect since last visit Have you been in the hospital since your No last visit? Has dressing in place as prescribed Yes Has compression in place as prescribed Yes Has offloadiing in place as prescribed N/A Experienced any changes in pain level or No management Left Footwear Regular Shoe Right Footwear Regular Shoe Pain Scale: 0-10 Numeric Is Patient Pain Free? Yes WC - Nurse 1 - General Ulcer Measurement Start: 06/30/22 14:59 Freq: Status: Active Protocol: Activity Type Activity Date Activity User E-sign Co-sign Detail Recorded Client Recorded Date Recorded By Document 06/30/22 14:59 DANIELITO [id number] 06/30/22 15:01 KR 06/30/22 14:59 Wound Center Nurse 1 #2 R dorsal foot -Current Size (cm) - Length 0.7 -Current Size (cm) - Width 1.9 -Current Size (cm) - Depth 0.1 -Total Square Cm 1.33 -Exudate Amt Small -Exudate Type Serosanguineous -Wound Margin Distinct, Outline Attached -Granulation Amt Medium (34-66%) -Granulation Quality [employer] [place] -Necrosis Amt Small (1-33%) -Necrotic Tissue Type Adherent Slough -Texture (Herlinda-wound Skin Appearance) Assessed, Scarring -Moisture (Herlinda-wound Skin Appearance) No Abnormality, Assessed -Color (Herlinda-wound Skin Appearance) No Abnormality, Assessed -Temperature (Herlinda-wound Skin No Abnormality Appearance) (Pt Warm) -Tenderness on Palpation (Herlinda-wound No Skin Appearance) -Ulcer Cleansing Rinsed/ Irrigated with Saline -Foul Odor after Cleansing No -Anesthetic Used 5% Lidocaine Gel #1 RLE -Current Size (cm) - Length 15 -Current Size (cm) - Width 13 -Current Size (cm) - Depth 0.1 -Total Square Cm 195 -Exudate Type Serosanguineous -Wound Margin Distinct, Outline Attached -Granulation Amt Large (67-100%) -Granulation Quality Red -Necrosis Amt None Present (0 %) -Texture (Herlinda-wound Skin Appearance) Assessed, Scarring -Moisture (Herlinda-wound Skin Appearance) Assessed, Maceration, Weeping -Color (Herlinda-wound Skin Appearance) No Abnormality, Assessed -Temperature (Herlinda-wound Skin No Abnormality Appearance) (Pt Warm) -Tenderness on Palpation (Herlinda-wound No Skin Appearance) -Ulcer Cleansing Soap and Water -Foul Odor after Cleansing No -Anesthetic Used 4% Lidocaine Solution,5% Lidocaine Gel WC - Nurse 2 - General Ulcer CM Notes Start: 06/30/22 14:59 Freq: Status: Active Protocol: Activity Type Activity Date Activity User E-sign Co-sign Detail Recorded Client Recorded Date Recorded By Document 06/30/22 15:08 MW [id number] 06/30/22 15:19 MW 06/30/22 15:08 Wound Center Nurse 2 #2 R dorsal foot -Time 15:08 -Correct Patient Yes -Correct Side, Site, Position Yes -Correct Procedure Yes -Procedure Performed Yes -Type of Procedure Debridement -Clinical Debridement Subcutaneous -Tissue Removed Subcutaneous -Post Debridement (cm) - Length 0.5 -Post Debridement (cm) - Width 2.5 -Post Debridement (cm) - Depth 0.1 -Total Square (Post) (cm) 1.25 -Area of Debridement (cm) - Length 0.5 -Area of Debridement (cm) - Width 2.5 -Total Square (Area) (cm) 1.25 -Tunneling No -Undermining/Tunneling No -Circular Undermining No -Wound/Ulcer Outcome Not Healed -Ulcer Cleansing Rinsed/ Irrigated with Saline -Foul Odor after Cleansing No -Bioengineered Tissue No -Bleeding Controlled with Pressure -Treatment Response Procedure Tolerated Well -Offloading No -Debridement - Subq, 1st 20sq cm Yes -Debridement, SubQ, ea addt'l 20sq cm 6 or part thereof #1 RLE -Time 15:10 -Correct Patient Yes -Correct Side, Site, Position Yes -Correct Procedure Yes -Procedure Performed Yes -Type of Procedure Debridement -Clinical Debridement Subcutaneous -Tissue Removed Subcutaneous -Post Debridement (cm) - Length 12.7 -Post Debridement (cm) - Width 10.5 -Post Debridement (cm) - Depth 0.1 -Total Square (Post) (cm) 133.35 -Area of Debridement (cm) - Length 12.7 -Area of Debridement (cm) - Width 10.5 -Total Square (Area) (cm) 133.35 -Tunneling No -Undermining/Tunneling No -Circular Undermining No -Wound/Ulcer Outcome Not Healed -Ulcer Cleansing Rinsed/ Irrigated with Saline -Foul Odor after Cleansing No -Bioengineered Tissue No -Bleeding Controlled with Pressure -Treatment Response Procedure Tolerated Well -Offloading No -Debridement - Subq, 1st 20sq cm No Pain Scale: 0-10 Numeric Is Patient Pain Free? Yes - Nurse 3 - General Ulcer D/C NN Start: 06/30/22 14:59 Freq: Status: Active Protocol: Activity Type Activity Date Activity User E-sign Co-sign Detail Recorded Client Recorded Date Recorded By Document 06/30/22 15:38 IL [id number] 06/30/22 15:39 AK 06/30/22 15:38 Wound Care Nurse 3 #2 R dorsal foot -Ulcer Cleansing Rinsed/ Irrigated with Saline -Foul Odor after Cleansing No -Negative Pressure Wound Therapy N/A -Primary Dressing Applied Optilok 8x12, Silvercel -Optilok 8x12 1 -[place] 1 #1 RLE -Ulcer Cleansing Rinsed/ Irrigated with Saline -Foul Odor after Cleansing No -Negative Pressure Wound Therapy N/A -Primary Dressing Applied NonAdherent Contact Layer Right -Multi-Layered Wrap Application Multi-Layer Comp - Right ($ ) Pain Scale: 0-10 Numeric Is Patient Pain Free? Yes WC - Visit Discharge Discharge Condition Stable Ambulatory Status Ambulatory Transportation Private Auto Medication Reconcilliation completed & Yes provided to patient/care provider Clinical Summary of Care Provided Yes Additional Wound Wound debrided: doral foot ulcer Laterality: Right Type of Debridement: Excisional debridement Anesthesia Used: 4% Lidocaine Solution and 5% Lidocaine Gel Depth: Down to and including healthy tissue and in the subcutaneous layer Percentage of wound debrided: 100 Instrument Used: 5mm curette Tissue Removed: Devitalized tissue and slough Severity: Fat Layer Exposed Amount of bleeding with debridement: Mild Bleeding Controlled with: Pressure and Compression and gauze Patient tolerated procedure: Patient tolerated procedure well Assessment/Plan Assessment/Plan (1) Ulcer of right lower extremity: CODE(S): L97.919 - Non-pressure chronic ulcer of unspecified part of right lower leg with unspecified severity (2) Ulcer of right foot limited to breakdown of skin: CODE(S): L97.511 - Non-pressure chronic ulcer of other part of right foot limited to breakdown of skin (3) Bilateral lower extremity edema: CODE(S): R60.0 - Localized edema (4) Diabetes type 2, controlled: CODE(S): E11.9 - Type 2 diabetes mellitus without complications (5) Cigar smoker: CODE(S): F17.290 - Nicotine dependence, other tobacco product, uncomplicated PLAN: Plan Patient was evaluated at the wound center today. Subcutaneous debridement was performed. He has had venous studies done in [place], they showed not DVT. He states he had arterial studies done, we will try to get results. Wound care - Aquacel-Ag covered by super absorber/ABD daily to right dorsal foot and right anterior/lateral leg cluster ulcers. Compression with be light 3M 2 layer wraps. We have obtained vascular studies from [facility], and reviewed results with patient as noted in HPI. Encouraged elevating legs when sitting and avoid standing for long periods of time. Increase protein intake and start taking Vitamin C 1,000mg daily. Follow up on Tuesday for nurse visit and one week to see me.
[2022-07-02 14:10] VITALS: BP 105/53; PULSE 72; RESP 18; TEMP 36.2; BMI 26.4
[2022-07-07 14:17] VITALS: BP 134/73; PULSE 69; RESP 16; TEMP 35.9; BMI 26.4
--- NOTE | 2022-07-07 15:21 | PN.PCM_ITS ---
History of Present Illness Date of Service: 07/07/22 Chief Complaint: Ulcers on right leg and foot History of Wound: Patient is a 81 male who presents for evaluation of the ulcer on his right anterior leg and right dorsal foot. He states that they opened up 3 weeks ago. He does has issues with leg edema for the past couple months. He went to his PCP, Dr. Zaldivar, on 06/02/22 and he started him on Augmentin, ordered vascular studies and referred him to the wound center. Patient has been covering the ulcer with gauze. He has a history of cardiac stent, DM type 2 diet controlled, BPH, HTN, Cardiac stents, uses an inhaler, smokes little cigars 4- 5/day x 65 years. 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 He states that they will be moving to [place] sometime in the next several months to be closer to their daughter. Wound care - Aquacel-Ag topped by gauze daily after washing with soap and water. Will use 3M 2 layer wrap. Venous study done at [facility] from 06/02/22 were negative for acute DVT bilaterally and all veins were compressible. Arterial studies done in [place] from 06/15/22 showed right PURA 0.87 and left PURA 1.04. 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 Decreased digital perfusion noted. Biphasic flow in noted in the right popliteal artery, right posterior tibial artery and right dorsalis pedis artery. Triphasic flow is noted in the right common femoral artery. Left lower PVR showed no evidence of arterial occlusive disease, normal digital perfusion, triphasic flow in the left common femoral, popliteal, posterior tibial and dorsalis pedis arteries. Comparison study from 02/09/21 showed decrease in distal pressures in the right lower extremity. Cardiac echo done in [place] on 06/15/22 showed normal LVF, mild aortic valve regurgitation, positive bubble study for a small PFO (=10 bubbles) was de monstrated. He denies any fever, chills, nausea, vomiting. He states his appetite is good. Progress of Wound: Right dorsal foot ulcer and right anterior/lateral ulcers have have improved. He has had 3M 2 layer wraps and he is tolerating them fairly well. Objective Data Objective Data Vital Signs: Vital Signs Temp Pulse Resp BP O2 Del Method 96.6 F L 69 16 134/73 H Room Air 07/07/22 14:17 07/07/22 14:17 07/07/22 14:17 07/07/22 14:17 07/07/22 14:17 Oxygen Delivery Method Room Air Weight: 195 lb Body Mass Index (BMI) 26.4 Charges/Coding Procedures Integumentary 111xxx-113xx: 01435 Elen subq tissue 20 sq cm/< Add On Codes: 63426 Elen subq tissue add-on (x5) Physical Exam Const alert and oriented x3 General Appearance: cooperative HEENT normocephalic Resp normal respiratory effort Cardio regular rate Extremity full ROM and normal capillary refill Extremity Narrative: bilateral edema +2. Bilateral pedal pulses +2 palpabable. Skin Wound Narrative: Right anterior lower leg ulcer is superficial, shiny, pink and painful to touch with fibrous tissue in the wound base of part of the ulcer. Right dorsal foot ulcer is smaller with shiny pink with serous drainage. Neuro CN's II-XII intact bilaterally Psych thought process normal Appearance: grossly normal Debridement Note Debridement Note Wound debrided: anterior leg ulcer Laterality: Right Type of Debridement: Excisional debridement Anesthesia Used: 4% Lidocaine Solution and 5% Lidocaine Gel Depth: Down to and including healthy tissue and in the subcutaneous layer Percentage of wound debrided: 100 Instrument Used: 5mm curette Tissue Removed: Devitalized tissue and slough Severity: Fat Layer Exposed Amount of bleeding with debridement: Mild Bleeding Controlled with: Pressure and Compression and gauze Patient tolerated procedure: Patient tolerated procedure well Post-Debridement Measurements and Additional Note: Post-Debridement Measurements/Treatment - Nurse 1 - General Ulcer Assessment Start: 06/30/22 14:59 Freq: Status: Active Protocol: SHU Activity Type Activity Date Activity User E-sign Co-sign Detail Recorded Client Recorded Date Recorded By Document 06/30/22 14:59 KR [id number] 06/30/22 15:01 KR Document 07/02/22 14:10 RB [id number] 07/02/22 14:13 RB Document 07/07/22 14:17 [facility] [id number] 07/07/22 14:22 [facility] 06/30/22 07/02/22 07/07/22 14:59 14:10 14:17 - Today's Visit Information Type of service Follow-up Visit Nurse-only Follow-up Visit (Physician/COLLECTIONS REPRESENTATIVE Visit (Physician/COLLECTIONS REPRESENTATIVE ) ) Arrival Mode Ambulatory,Cane Ambulatory Ambulatory Transfer Assistance None None Patient Identification Verified (Name & Yes Yes Yes ) Patient Requires Transmission-Based No Precautions Height and Weight Body Mass Index (BMI) 26.4 26.4 26.4 BMI Classification Overweight Overweight Overweight Vital Signs Temperature (97.8 F-99.1 F) 97.4 F L 97.1 F L 96.6 F L Temperature Source Temporal Temporal Temporal Pulse Rate (60-100) 78 72 69 Pulse Location Monitor Monitor Monitor Respiratory Rate (12-18) 18 16 Respiratory rate source Observation Observation Oxygen Delivery Method Room Air Blood Pressure (90/60-120/80) 149/77 H 105/53 L 134/73 H Blood Pressure Mean (mm Hg) 101 70 93 Source Monitor Monitor Monitor Position Semi-Fowlers Sitting Sitting Blood Pressure Location Right Arm Left Arm Right Arm History Since Last Visit- (Skip if this is Patient's initial visit) Have you changed medications since your No No No last visit? Any new allergies or adverse reactions No No No Had a fall/change in ADL's that may No No increase risk of falls Signs or symptoms of abuse and/or No No No neglect since last visit Have you been in the hospital since your No No No last visit? Has dressing in place as prescribed Yes Yes Yes Has compression in place as prescribed Yes Yes Yes Has offloadiing in place as prescribed N/A No N/A Experienced any changes in pain level or No No No management Left Footwear Regular Shoe Regular Shoe Right Footwear Regular Shoe Regular Shoe Pain Scale: 0-10 Numeric Is Patient Pain Free? Yes Yes Yes - Nurse 1 - General Ulcer Measurement Start: 06/30/22 14:59 Freq: Status: Active Protocol: Activity Type Activity Date Activity User E-sign Co-sign Detail Recorded Client Recorded Date Recorded By Document 06/30/22 14:59 KR [id number] 06/30/22 15:01 KR Document 07/02/22 14:10 RB [id number] 07/02/22 14:13 RB Document 07/07/22 14:17 [facility] [id number] 07/07/22 14:22 BM 06/30/22 07/02/22 07/07/22 14:59 14:10 14:17 Wound Center Nurse 1 #2 R dorsal foot -Combined with other wound No -Current Size (cm) - Length 0.7 0.1 -Current Size (cm) - Width 1.9 0.1 -Current Size (cm) - Depth 0.1 0.1 -Total Square Cm 1.33 0.01 -Date of Last Picture (Recall this 07/07/22 field) -Photo Taken Yes -Epithelialization Large 67-100% -Exudate Amt Small None Present -Exudate Type Serosanguineous -Wound Margin Distinct, Distinct, Outline Outline Attached Attached -Granulation Amt Medium (34-66%) -Granulation Quality [place] -Necrosis Amt Small (1-33%) Small (1-33%) -Necrotic Tissue Type Adherent Slough Eschar -Texture (Herlinda-wound Skin Appearance) Assessed, Assessed Scarring -Moisture (Herlinda-wound Skin Appearance) No Abnormality, Assessed Assessed -Color (Herlinda-wound Skin Appearance) No Abnormality, Assessed Assessed -Temperature (Herlinda-wound Skin No Abnormality No Abnormality Appearance) (Pt Warm) (Pt Warm) -Tenderness on Palpation (Herlinda-wound No No Skin Appearance) -Ulcer Cleansing Rinsed/ Soap and Water Irrigated with Saline -Foul Odor after Cleansing No No -Anesthetic Used 5% Lidocaine 5% Lidocaine Gel Gel #1 RLE -Combined with other wound No -Current Size (cm) - Length 15 10.5 -Current Size (cm) - Width 13 2 -Current Size (cm) - Depth 0.1 0.1 -Total Square Cm 195 21.0 -Date of Last Picture (Recall this 07/07/22 field) -Photo Taken Yes -Epithelialization None Present -Tunneling No -Undermining/Tunneling No -Circular Undermining No -Exudate Amt Large -Exudate Type Serosanguineous Serosanguineous -Wound Margin Distinct, Distinct, Outline Outline Attached Attached -Granulation Amt Large (67-100%) Medium (34-66%) -Granulation Quality Red Red -Slough/Fibrin Yes -Necrosis Amt None Present (0 Medium (34-66%) %) -Necrotic Tissue Type Adherent Slough -Texture (Herlinda-wound Skin Appearance) Assessed, Assessed, Scarring Excoriation, Scarring -Moisture (Herlinda-wound Skin Appearance) Assessed, Assessed Maceration, Weeping -Color (Herlinda-wound Skin Appearance) No Abnormality, Assessed, Assessed Erythema -Temperature (Herlinda-wound Skin No Abnormality No Abnormality Appearance) (Pt Warm) (Pt Warm) -Tenderness on Palpation (Herlinda-wound No Yes Skin Appearance) -Ulcer Cleansing Soap and Water Soap and Water -Foul Odor after Cleansing No No -Anesthetic Used 4% Lidocaine 5% Lidocaine Solution,5% Gel Lidocaine Gel Lower Limb Edema Present Yes Yes Right Calf (cm) 39 38.3 Right Ankle (cm) 26 28.2 WC - Nurse 2 - General Ulcer CM Notes Start: 06/30/22 14:59 Freq: Status: Active Protocol: Activity Type Activity Date Activity User E-sign Co-sign Detail Recorded Client Recorded Date Recorded By Document 06/30/22 15:08 MW [id number] 06/30/22 15:19 MW Document 07/07/22 14:31 [id number] 07/07/22 14:39 06/30/22 07/07/22 15:08 14:31 Wound Center Nurse 2 #2 R dorsal foot -Time 15:08 14:32 -Correct Patient Yes Yes -Correct Side, Site, Position Yes Yes -Correct Procedure Yes Yes -Procedure Performed Yes Yes -Type of Procedure Debridement Debridement -Clinical Debridement Subcutaneous Subcutaneous -Tissue Removed Subcutaneous Subcutaneous -Post Debridement (cm) - Length 0.5 0.5 -Post Debridement (cm) - Width 2.5 1.7 -Post Debridement (cm) - Depth 0.1 0.1 -Total Square (Post) (cm) 1.25 0.85 -Area of Debridement (cm) - Length 0.5 0.5 -Area of Debridement (cm) - Width 2.5 1.7 -Total Square (Area) (cm) 1.25 0.85 -Tunneling No No -Undermining/Tunneling No No -Circular Undermining No No -Wound/Ulcer Outcome Not Healed Not Healed -Ulcer Cleansing Rinsed/ Rinsed/ Irrigated with Irrigated with Saline Saline -Foul Odor after Cleansing No No -Bioengineered Tissue No No -Bleeding Controlled with Pressure Pressure -Treatment Response Procedure Procedure Tolerated Well Tolerated Well -Offloading No No -Debridement - Subq, 1st 20sq cm Yes No -Debridement, SubQ, ea addt'l 20sq cm 6 or part thereof #1 RLE -Time 15:10 14:32 -Correct Patient Yes Yes -Correct Side, Site, Position Yes Yes -Correct Procedure Yes Yes -Procedure Performed Yes Yes -Type of Procedure Debridement Debridement -Clinical Debridement Subcutaneous Subcutaneous -Tissue Removed Subcutaneous Subcutaneous -Post Debridement (cm) - Length 12.7 11.6 -Post Debridement (cm) - Width 10.5 5.5 -Post Debridement (cm) - Depth 0.1 0.1 -Total Square (Post) (cm) 133.35 63.80 -Area of Debridement (cm) - Length 12.7 11.6 -Area of Debridement (cm) - Width 10.5 5.5 -Total Square (Area) (cm) 133.35 63.80 -Tunneling No No -Undermining/Tunneling No No -Circular Undermining No No -Wound/Ulcer Outcome Not Healed Not Healed -Ulcer Cleansing Rinsed/ Rinsed/ Irrigated with Irrigated with Saline Saline -Foul Odor after Cleansing No No -Bioengineered Tissue No No -Bleeding Controlled with Pressure Pressure -Treatment Response Procedure Procedure Tolerated Well Tolerated Well -Offloading No No -Debridement - Subq, 1st 20sq cm No Yes -Debridement, SubQ, ea addt'l 20sq cm 3 or part thereof Pain Scale: 0-10 Numeric Is Patient Pain Free? Yes Yes - Nurse 3 - General Ulcer D/C NN Start: 06/30/22 14:59 Freq: Status: Active Protocol: Activity Type Activity Date Activity User E-sign Co-sign Detail Recorded Client Recorded Date Recorded By Document 06/30/22 15:38 AK [id number] 06/30/22 15:39 AK Document 07/02/22 14:10 RB [id number] 07/02/22 14:13 RB Document 07/07/22 14:46 KR [id number] 07/07/22 14:47 KR 06/30/22 07/02/22 07/07/22 15:38 14:10 14:46 Wound Care Nurse 3 #2 R dorsal foot -Ulcer Cleansing Rinsed/ Wound Cleanser Rinsed/ Irrigated with Irrigated with Saline Saline -Foul Odor after Cleansing No -Negative Pressure Wound Therapy N/A -Primary Dressing Applied Optilok 8x12, Aquacel AG 4x4 Aquacel AG 4x4, Silvercel NonAdherent Contact Layer, Optilok 6.5x10 -Aquacel AG 4x4 1 1 -Optilok 6.5x10 1 -Optilok 8x12 1 -Silvercel 1 #1 RLE -Ulcer Cleansing Rinsed/ Wound Cleanser Irrigated with Saline -Foul Odor after Cleansing No -Negative Pressure Wound Therapy N/A -Primary Dressing Applied NonAdherent NonAdherent Contact Layer Contact Layer, Optilok 8x12 -Other Dressing aquacel ag -Optilok 8x12 1 Right -Multi-Layered Wrap Application Multi-Layer Multi-Layer Multi-Layer Comp - Right ($ Comp - Right ($ Comp - Right ($ ) ) ) Treatment Response Procedure Tolerated Well Vital Signs Temperature (97.8 F-99.1 F) 97.1 F L Temperature Source Temporal Pulse Rate (60-100) 72 Pulse Location Monitor Respiratory Rate (12-18) 18 Respiratory rate source Observation Blood Pressure (90/60-120/80) 105/53 L Blood Pressure Mean (mm Hg) 70 Source Monitor Position Sitting Blood Pressure Location Left Arm Pain Scale: 0-10 Numeric Is Patient Pain Free? Yes Yes Yes WC - Visit Discharge Discharge Condition Stable Stable Stable Ambulatory Status Ambulatory Ambulatory Ambulatory,Cane Transportation Private Auto Private Auto Private Auto Medication Reconcilliation completed & Yes No provided to patient/care provider Clinical Summary of Care Provided Yes Yes Additional Wound Wound debrided: doral foot ulcer Laterality: Right Type of Debridement: Excisional debridement Anesthesia Used: 4% Lidocaine Solution and 5% Lidocaine Gel Depth: Down to and including healthy tissue and in the subcutaneous layer Percentage of wound debrided: 100 Instrument Used: 5mm curette Tissue Removed: Devitalized tissue and slough Severity: Fat Layer Exposed Amount of bleeding with debridement: Mild Bleeding Controlled with: Pressure and Compression and gauze Patient tolerated procedure: Patient tolerated procedure well Assessment/Plan Assessment/Plan (1) Ulcer of right lower extremity: CODE(S): L97.919 - Non-pressure chronic ulcer of unspecified part of right lower leg with unspecified severity (2) Ulcer of right foot limited to breakdown of skin: CODE(S): L97.511 - Non-pressure chronic ulcer of other part of right foot limited to breakdown of skin (3) Bilateral lower extremity edema: CODE(S): R60.0 - Localized edema (4) Diabetes type 2, controlled: CODE(S): E11.9 - Type 2 diabetes mellitus without complications (5) Cigar smoker: CODE(S): F17.290 - Nicotine dependence, other tobacco product, uncomplicated PLAN: Plan Patient was evaluated at the wound center today. Subcutaneous debridement was performed. His vascular study results are in the HPI. He has some arterial disease that it would be beneficial to speak to a vascular surgeon for possible treatment options. Patient does not want to be referred to one in [place] since he will be moving to [place] after the first of July. We will also refer him to a [facility] wound center close to where he is moving in [place] for continuation of his wound care. Wound care - Aquacel-Ag covered by super absorber/ABD daily to right dorsal foot and right anterior/lateral leg cluster ulcers. Compression with be light 3M 2 layer wrap to the right leg. Encouraged elevating legs when sitting and avoid standing for long periods of time. Increase protein intake and start taking Vitamin C 1,000mg daily. Follow up one week. Call or come in sooner if develop any concerns.
[2022-07-14 13:33] VITALS: BP 121/64; PULSE 75; TEMP 36.1; BMI 26.4
--- NOTE | 2022-07-14 15:20 | PCM.WC.PN ---
History of Present Illness Date of Service: 07/14/22 Chief Complaint: Ulcers on right leg and foot History of Wound: Patient is a 81 male who presents for evaluation of the ulcer on his right anterior leg and right dorsal foot. He states that they opened up 3 weeks ago. He does has issues with leg edema for the past couple months. He went to his PCP, Dr. Zaldivar, on 06/02/22 and he started him on Augmentin, ordered vascular studies and referred him to the wound center. Patient has been covering the ulcer with gauze. He has a history of cardiac stent, DM type 2 diet controlled, BPH, HTN, Cardiac stents, uses an inhaler, smokes little cigars 4-5/day x 65 years. 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 He states that they will be moving to [place] sometime in the next several months to be closer to their daughter. Wound care - Right anterior/lateral leg ulcerAquacel-Ag topped by gauze daily after washing with soap and water. Will use 3M 2 layer wrap. Venous study done at [place] from 06/02/22 were negative for acute DVT bilaterally and all veins were compressible. Arterial studies done in [place] from 06/15/22 showed right PURA 0.87 and left PURA 1.04. 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 Decreased digital perfusion noted. Biphasic flow in noted in the right popliteal artery, right posterior tibial artery and right dorsalis pedis artery. Triphasic flow is noted in the right common femoral artery. Left lower PVR showed no evidence of arterial occlusive disease, normal digital perfusion, triphasic flow in the left common femoral, popliteal, posterior tibial and dorsalis pedis arteries. Comparison study from 02/09/21 showed decrease in distal pressures in the right lower extremity. Cardiac echo done in [place] on 06/15/22 showed normal LVF, mild aortic valve regurgitation, positive bubble study for a small PFO (=10 bubbles) was demonstrated. He denies any fever, chills, nausea, vomiting. He states his appetite is good. Progress of Wound: Right dorsal foot ulcer is healed. The right anterior/lateral ulcers has improved. He has had 3M 2 layer wraps and he is tolerating them fairly well. Objective Data Objective Data Vital Signs: Vital Signs Temp Pulse Resp BP O2 Del Method 96.9 F L 75 16 121/64 H Room Air 07/14/22 13:33 07/14/22 13:33 07/07/22 14:17 07/14/22 13:33 07/07/22 14:17 Oxygen Delivery Method Room Air Weight: 195 lb Body Mass Index (BMI) 26.4 Charges/Coding Procedures Integumentary 111xxx-113xx: 00439 Elen subq tissue 20 sq cm/< Add On Codes: 51804 Elen subq tissue add-on (x2) Physical Exam Const alert and oriented x3 General Appearance: cooperative HEENT normocephalic Resp normal respiratory effort Cardio regular rate Extremity full ROM and normal capillary refill Extremity Narrative: bilateral edema +2. Bilateral pedal pulses +2 palpable. His edema is improving with the 3 M 2 layer wraps. Skin Wound Narrative: Right anterior lower leg ulcer is superficial, and smaller in size. It is still painful. Right dorsal foot ulcer is healed. Neuro CN's II-XII intact bilaterally Psych thought process normal Appearance: grossly normal Debridement Note Debridement Note Post-Debridement Measurements and Additional Note: Post-Debridement Measurements/Treatment - Nurse 1 - General Ulcer Assessment Start: 06/30/22 14:59 Freq: Status: Active Protocol: .LIZBET Activity Type Activity Date Activity User E-sign Co-sign Detail Recorded Client Recorded Date Recorded By Document 06/30/22 14:59 KR [id number] 06/30/22 15:01 KR Document 07/02/22 14:10 RB [id number] 07/02/22 14:13 RB Document 07/07/22 14:17 [facility] [id number] 07/07/22 14:22 [facility] Document 07/14/22 13:33 AK [id number] 07/14/22 13:37 AK 06/30/22 07/02/22 07/07/22 14:59 14:10 14:17 - Today's Visit Information Type of service Follow-up Visit Nurse-only Follow-up Visit (Physician/WET CLEANER MACHINE Visit (Physician/WET CLEANER MACHINE ) ) Arrival Mode Ambulatory,Cane Ambulatory Ambulatory Transfer Assistance None None Patient Identification Verified (Name & Yes Yes Yes ) Patient Requires Transmission-Based No Precautions Safety Precautions Height and Weight Body Mass Index (BMI) 26.4 26.4 26.4 BMI Classification Overweight Overweight Overweight Vital Signs Temperature (97.8 F-99.1 F) 97.4 F L 97.1 F L 96.6 F L Temperature Source Temporal Temporal Temporal Pulse Rate (60-100) 78 72 69 Pulse Location Monitor Monitor Monitor Respiratory Rate (12-18) 18 16 Respiratory rate source Observation Observation Oxygen Delivery Method Room Air Blood Pressure (90/60-120/80) 149/77 H 105/53 L 134/73 H Blood Pressure Mean (mm Hg) 101 70 93 Source Monitor Monitor Monitor Position Semi-Fowlers Sitting Sitting Blood Pressure Location Right Arm Left Arm Right Arm History Since Last Visit- (Skip if this is Patient's initial visit) Have you changed medications since your No No No last visit? Any new allergies or adverse reactions No No No Had a fall/change in ADL's that may No No increase risk of falls Signs or symptoms of abuse and/or No No No neglect since last visit Have you been in the hospital since your No No No last visit? Has dressing in place as prescribed Yes Yes Yes Has compression in place as prescribed Yes Yes Yes Has offloadiing in place as prescribed N/A No N/A Experienced any changes in pain level or No No No management Left Footwear Regular Shoe Regular Shoe Right Footwear Regular Shoe Regular Shoe Pain Scale: 0-10 Numeric Is Patient Pain Free? Yes Yes Yes 07/14/22 13:33 WC - Today's Visit Information Type of service Follow-up Visit (Physician/WET CLEANER MACHINE ) Arrival Mode Ambulatory,Cane Transfer Assistance Patient Identification Verified (Name & Yes ) Patient Requires Transmission-Based No Precautions Safety Precautions NA Height and Weight Body Mass Index (BMI) 26.4 BMI Classification Overweight Vital Signs Temperature (97.8 F-99.1 F) 96.9 F L Temperature Source Temporal Pulse Rate (60-100) 75 Pulse Location Monitor Respiratory Rate (12-18) Respiratory rate source Oxygen Delivery Method Blood Pressure (90/60-120/80) 121/64 H Blood Pressure Mean (mm Hg) 83 Source Monitor Position Blood Pressure Location History Since Last Visit- (Skip if this is Patient's initial visit) Have you changed medications since your No last visit? Any new allergies or adverse reactions No Had a fall/change in ADL's that may No increase risk of falls Signs or symptoms of abuse and/or No neglect since last visit Have you been in the hospital since your No last visit? Has dressing in place as prescribed Yes Has compression in place as prescribed Has offloadiing in place as prescribed N/A Experienced any changes in pain level or No management Left Footwear Regular Shoe Right Footwear Regular Shoe Pain Scale: 0-10 Numeric Is Patient Pain Free? Yes WC - Nurse 1 - General Ulcer Measurement Start: 06/30/22 14:59 Freq: Status: Active Protocol: Activity Type Activity Date Activity User E-sign Co-sign Detail Recorded Client Recorded Date Recorded By Document 06/30/22 14:59 KR [id number] 06/30/22 15:01 KR Document 07/02/22 14:10 RB [id number] 07/02/22 14:13 RB Document 07/07/22 14:17 [facility] [id number] 07/07/22 14:22 BM Document 07/14/22 13:33 AK [id number] 07/14/22 13:37 AK 06/30/22 07/02/22 07/07/22 14:59 14:10 14:17 Wound Center Nurse 1 #2 R dorsal foot -Combined with other wound No -Current Size (cm) - Length 0.7 0.1 -Current Size (cm) - Width 1.9 0.1 -Current Size (cm) - Depth 0.1 0.1 -Total Square Cm 1.33 0.01 -Date of Last Picture (Recall this 07/07/22 field) -Photo Taken Yes -Epithelialization Large 67-100% -Tunneling -Undermining/Tunneling -Circular Undermining -Change in Wound Grade/Stage -Exudate Amt Small None Present -Exudate Type Serosanguineous -Wound Margin Distinct, Distinct, Outline Outline Attached Attached -Granulation Amt Medium (34-66%) -Granulation Quality [place] -Slough/Fibrin -Necrosis Amt Small (1-33%) Small (1-33%) -Necrotic Tissue Type Adherent Slough Eschar -Structure Exposed -Texture (Herlinda-wound Skin Appearance) Assessed, Assessed Scarring -Moisture (Herlinda-wound Skin Appearance) No Abnormality, Assessed Assessed -Color (Herlinda-wound Skin Appearance) No Abnormality, Assessed Assessed -Temperature (Herlinda-wound Skin No Abnormality No Abnormality Appearance) (Pt Warm) (Pt Warm) -Tenderness on Palpation (Herlinda-wound No No Skin Appearance) -Ulcer Cleansing Rinsed/ Soap and Water Irrigated with Saline -Foul Odor after Cleansing No No -Anesthetic Used 5% Lidocaine 5% Lidocaine Gel Gel #1 RLE -Combined with other wound No -Current Size (cm) - Length 15 10.5 -Current Size (cm) - Width 13 2 -Current Size (cm) - Depth 0.1 0.1 -Total Square Cm 195 21.0 -Date of Last Picture (Recall this 07/07/22 field) -Photo Taken Yes -Epithelialization None Present -Tunneling No -Undermining/Tunneling No -Circular Undermining No -Change in Wound Grade/Stage -Exudate Amt Large -Exudate Type Serosanguineous Serosanguineous -Wound Margin Distinct, Distinct, Outline Outline Attached Attached -Granulation Amt Large (67-100%) Medium (34-66%) -Granulation Quality Red Red -Slough/Fibrin Yes -Necrosis Amt None Present (0 Medium (34-66%) %) -Necrotic Tissue Type Adherent Slough -Structure Exposed -Texture (Herlinda-wound Skin Appearance) Assessed, Assessed, Scarring Excoriation, Scarring -Moisture (Herlinda-wound Skin Appearance) Assessed, Assessed Maceration, Weeping -Color (Herlinda-wound Skin Appearance) No Abnormality, Assessed, Assessed Erythema -Temperature (Herlinda-wound Skin No Abnormality No Abnormality Appearance) (Pt Warm) (Pt Warm) -Tenderness on Palpation (Herlinda-wound No Yes Skin Appearance) -Ulcer Cleansing Soap and Water Soap and Water -Foul Odor after Cleansing No No -Anesthetic Used 4% Lidocaine 5% Lidocaine Solution,5% Gel Lidocaine Gel Lower Limb Edema Present Yes Yes Right Calf (cm) 39 38.3 Right Ankle (cm) 26 28.2 07/14/22 13:33 Wound Center Nurse 1 #2 R dorsal foot -Combined with other wound No -Current Size (cm) - Length 0.1 -Current Size (cm) - Width 0.1 -Current Size (cm) - Depth 0.1 -Total Square Cm 0.01 -Date of Last Picture (Recall this 07/14/22 field) -Photo Taken Yes -Epithelialization -Tunneling No -Undermining/Tunneling No -Circular Undermining No -Change in Wound Grade/Stage No -Exudate Amt None Present -Exudate Type -Wound Margin -Granulation Amt None Present (0 %) -Granulation Quality N/A -Slough/Fibrin No -Necrosis Amt None Present (0 %) -Necrotic Tissue Type -Structure Exposed N/A -Texture (Herlinda-wound Skin Appearance) No Abnormality, Assessed -Moisture (Herlinda-wound Skin Appearance) No Abnormality, Assessed -Color (Herlinda-wound Skin Appearance) No Abnormality, Assessed -Temperature (Herlinda-wound Skin No Abnormality Appearance) (Pt Warm) -Tenderness on Palpation (Herlinda-wound No Skin Appearance) -Ulcer Cleansing Soap and Water -Foul Odor after Cleansing No -Anesthetic Used #1 RLE -Combined with other wound No -Current Size (cm) - Length 9 -Current Size (cm) - Width 5 -Current Size (cm) - Depth 0.1 -Total Square Cm 45 -Date of Last Picture (Recall this 07/14/22 field) -Photo Taken Yes -Epithelialization None Present -Tunneling No -Undermining/Tunneling No -Circular Undermining No -Change in Wound Grade/Stage No -Exudate Amt Large -Exudate Type Serosanguineous -Wound Margin Distinct, Outline Attached -Granulation Amt Medium (34-66%) -Granulation Quality [place],Red -Slough/Fibrin Yes -Necrosis Amt Medium (34-66%) -Necrotic Tissue Type Adherent Slough -Structure Exposed N/A -Texture (Herlinda-wound Skin Appearance) Assessed, Scarring -Moisture (Herlinda-wound Skin Appearance) No Abnormality, Assessed, Weeping,Dry/ Scaly -Color (Herlinda-wound Skin Appearance) No Abnormality, Assessed -Temperature (Herlinda-wound Skin No Abnormality Appearance) (Pt Warm) -Tenderness on Palpation (Herlinda-wound No Skin Appearance) -Ulcer Cleansing Soap and Water -Foul Odor after Cleansing -Anesthetic Used 5% Lidocaine Gel Lower Limb Edema Present No Right Calf (cm) 35.5 Right Ankle (cm) 25 WC - Nurse 2 - General Ulcer CM Notes Start: 06/30/22 14:59 Freq: Status: Active Protocol: Activity Type Activity Date Activity User E-sign Co-sign Detail Recorded Client Recorded Date Recorded By Document 06/30/22 15:08 MW [id number] 06/30/22 15:19 MW Document 07/07/22 14:31 [id number] 07/07/22 14:39 Document 07/14/22 13:57 [id number] 07/14/22 14:08 06/30/22 07/07/22 07/14/22 15:08 14:31 13:57 Wound Center Nurse 2 #2 R dorsal foot -Time 15:08 14:32 -Correct Patient Yes Yes No -Correct Side, Site, Position Yes Yes No -Correct Procedure Yes Yes No -Procedure Performed Yes Yes No -Type of Procedure Debridement Debridement -Clinical Debridement Subcutaneous Subcutaneous -Tissue Removed Subcutaneous Subcutaneous -Post Debridement (cm) - Length 0.5 0.5 0 -Post Debridement (cm) - Width 2.5 1.7 0 -Post Debridement (cm) - Depth 0.1 0.1 0 -Total Square (Post) (cm) 1.25 0.85 0 -Area of Debridement (cm) - Length 0.5 0.5 0 -Area of Debridement (cm) - Width 2.5 1.7 0 -Total Square (Area) (cm) 1.25 0.85 0 -Tunneling No No -Undermining/Tunneling No No -Circular Undermining No No -Wound/Ulcer Outcome Not Healed Not Healed Healed- Epithelialized -Ulcer Cleansing Rinsed/ Rinsed/ Irrigated with Irrigated with Saline Saline -Foul Odor after Cleansing No No -Bioengineered Tissue No No -Bleeding Controlled with Pressure Pressure -Treatment Response Procedure Procedure Tolerated Well Tolerated Well -Offloading No No -Debridement - Subq, 1st 20sq cm Yes No -Debridement, SubQ, ea addt'l 20sq cm 6 or part thereof #1 RLE -Time 15:10 14:32 13:58 -Correct Patient Yes Yes Yes -Correct Side, Site, Position Yes Yes Yes -Correct Procedure Yes Yes Yes -Procedure Performed Yes Yes Yes -Type of Procedure Debridement Debridement Debridement -Clinical Debridement Subcutaneous Subcutaneous Subcutaneous -Tissue Removed Subcutaneous Subcutaneous Subcutaneous -Post Debridement (cm) - Length 12.7 11.6 10 -Post Debridement (cm) - Width 10.5 5.5 4.5 -Post Debridement (cm) - Depth 0.1 0.1 0.1 -Total Square (Post) (cm) 133.35 63.80 45.0 -Area of Debridement (cm) - Length 12.7 11.6 10 -Area of Debridement (cm) - Width 10.5 5.5 4.5 -Total Square (Area) (cm) 133.35 63.80 45.0 -Tunneling No No No -Undermining/Tunneling No No No -Circular Undermining No No No -Wound/Ulcer Outcome Not Healed Not Healed Not Healed -Ulcer Cleansing Rinsed/ Rinsed/ Rinsed/ Irrigated with Irrigated with Irrigated with Saline Saline Saline -Foul Odor after Cleansing No No No -Bioengineered Tissue No No No -Bleeding Controlled with Pressure Pressure Pressure -Treatment Response Procedure Procedure Procedure Tolerated Well Tolerated Well Tolerated Well -Offloading No No No -Debridement - Subq, 1st 20sq cm No Yes Yes -Debridement, SubQ, ea addt'l 20sq cm 3 2 or part thereof Pain Scale: 0-10 Numeric Is Patient Pain Free? Yes Yes Yes WC - Nurse 3 - General Ulcer D/C NN Start: 06/30/22 14:59 Freq: Status: Active Protocol: Activity Type Activity Date Activity User E-sign Co-sign Detail Recorded Client Recorded Date Recorded By Document 06/30/22 15:38 AK [id number] 06/30/22 15:39 AK Document 07/02/22 14:10 RB [id number] 07/02/22 14:13 RB Document 07/07/22 14:46 KR [id number] 07/07/22 14:47 KR Document 07/14/22 14:12 DL [id number] 07/14/22 14:23 DL 06/30/22 07/02/22 07/07/22 15:38 14:10 14:46 Wound Care Nurse 3 #2 R dorsal foot -Ulcer Cleansing Rinsed/ Wound Cleanser Rinsed/ Irrigated with Irrigated with Saline Saline -Foul Odor after Cleansing No -Negative Pressure Wound Therapy N/A -Primary Dressing Applied Optilok 8x12, Aquacel AG 4x4 Aquacel AG 4x4, Silvercel NonAdherent Contact Layer, Optilok 6.5x10 -Aquacel AG 4x4 1 1 -Optilok 6.5x10 1 -Optilok 8x12 1 -Silvercel 1 #1 RLE -Ulcer Cleansing Rinsed/ Wound Cleanser Irrigated with Saline -Foul Odor after Cleansing No -Negative Pressure Wound Therapy N/A -Primary Dressing Applied NonAdherent NonAdherent Contact Layer Contact Layer, Optilok 8x12 -Other Dressing aquacel ag -Primary Dressing Covered/Secured with -Aquacel AG 2x2 -Optilok 6.5x10 -Optilok 8x12 1 Right -Multi-Layered Wrap Application Multi-Layer Multi-Layer Multi-Layer Comp - Right ($ Comp - Right ($ Comp - Right ($ ) ) ) Treatment Response Procedure Tolerated Well Vital Signs Temperature (97.8 F-99.1 F) 97.1 F L Temperature Source Temporal Pulse Rate (60-100) 72 Pulse Location Monitor Respiratory Rate (12-18) 18 Respiratory rate source Observation Blood Pressure (90/60-120/80) 105/53 L Blood Pressure Mean (mm Hg) 70 Source Monitor Position Sitting Blood Pressure Location Left Arm Pain Scale: 0-10 Numeric Is Patient Pain Free? Yes Yes Yes WC - Visit Discharge Discharge Condition Stable Stable Stable Ambulatory Status Ambulatory Ambulatory Ambulatory,Cane Transportation Private Auto Private Auto Private Auto Medication Reconcilliation completed & Yes No provided to patient/care provider Clinical Summary of Care Provided Yes Yes Facility Type Orders Sent 07/14/22 14:12 Wound Care Nurse 3 #2 R dorsal foot -Ulcer Cleansing -Foul Odor after Cleansing -Negative Pressure Wound Therapy -Primary Dressing Applied -Aquacel AG 4x4 -Optilok 6.5x10 -Optilok 8x12 -Silvercel #1 RLE -Ulcer Cleansing Not Cleansed -Foul Odor after Cleansing No -Negative Pressure Wound Therapy -Primary Dressing Applied Aquacel AG 2x2, NonAdherent Contact Layer, Optilok 6.5x10 -Other Dressing -Primary Dressing Covered/Secured with Dry Gauze & Roll Gauze -Aquacel AG 2x2 1 -Optilok 6.5x10 1 -Optilok 8x12 Right -Multi-Layered Wrap Application Multi-Layer Comp - Right ($ ) Treatment Response Procedure Tolerated Well Vital Signs Temperature (97.8 F-99.1 F) Temperature Source Pulse Rate (60-100) Pulse Location Respiratory Rate (12-18) Respiratory rate source Blood Pressure (90/60-120/80) Blood Pressure Mean (mm Hg) Source Position Blood Pressure Location Pain Scale: 0-10 Numeric Is Patient Pain Free? Yes WC - Visit Discharge Discharge Condition Stable Ambulatory Status Ambulatory,Cane Transportation Private Auto Medication Reconcilliation completed & provided to patient/care provider Clinical Summary of Care Provided Facility Type Home Health Orders Sent Yes Assessment/Plan Assessment/Plan (1) Ulcer of right lower extremity: CODE(S): L97.919 - Non-pressure chronic ulcer of unspecified part of right lower leg with unspecified severity (2) Ulcer of right foot limited to breakdown of skin: CODE(S): L97.511 - Non-pressure chronic ulcer of other part of right foot limited to breakdown of skin (3) Bilateral lower extremity edema: CODE(S): R60.0 - Localized edema (4) Diabetes type 2, controlled: CODE(S): E11.9 - Type 2 diabetes mellitus without complications (5) Cigar smoker: CODE(S): F17.290 - Nicotine dependence, other tobacco product, uncomplicated PLAN: Plan Patient was evaluated at the wound center today. Subcutaneous debridement was performed. His vascular study results are in the HPI. He has some arterial disease that it would be beneficial to speak to a vascular surgeon for possible treatment options. Patient does not want to be referred to one in [place] since he will be moving to [place] after the first july. We will also refer him to a [facility] wound center close to where he is moving in [place] for continuation of his wound care. Wound care - Aquacel-Ag covered by super absorber/ABD daily to the right anterior/lateral leg cluster ulcer. Right dorsal foot ulcer is healed. Compression with be light 3M 2 layer wrap to the right leg. It is really improving his edema. Encouraged elevating legs when sitting and avoid standing for long periods of time. Increase protein intake and start taking Vitamin C 1,000mg daily. Follow up one week. Call or come in sooner if develop any concerns.
[2022-07-21 13:32] VITALS: BP 132/85; PULSE 93; RESP 18; TEMP 36.1; BMI 26.4
--- NOTE | 2022-07-21 16:39 | PN.PCM_ITS ---
History of Present Illness Date of Service: 07/21/22 Chief Complaint: Ulcers on right leg and foot History of Wound: Patient is a 81 male who presents for evaluation of the ulcer on his right anterior leg and right dorsal foot. He states that they opened up 3 weeks ago. He does has issues with leg edema for the past couple months. He went to his PCP, Dr. Zaldivar, on 06/02/22 and he started him on Augmentin, ordered vascular studies and referred him to the wound center. Patient has been covering the ulcer with gauze. He has a history of cardiac stent, DM type 2 diet controlled, BPH, HTN, Cardiac stents, uses an inhaler, smokes little cigars 4- 5/day x 65 years. 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 He states that they will be moving to [place] sometime in the next several months to be closer to their daughter. Wound care - Right anterior/lateral leg ulcer is moistened Aquacel-Ag topped by gauze or ABD daily after washing with soap and water. Will use 3M 2 layer wrap. Venous study done at [facility] from 06/02/22 were negative for acute DVT bilaterally and all veins were compressible. Arterial studies done in [facility] from 06/15/22 showed right PURA 0.87 and left PURA 1.04. 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 Decreased digital perfusion noted. Biphasic flow in noted in the right popliteal artery, right posterior tibial artery and right dorsalis pedis artery. Triphasic flow is noted in the right common f emoral artery. Left lower PVR showed no evidence of arterial occlusive disease, normal digital perfusion, triphasic flow in the left common femoral, popliteal, posterior tibial and dorsalis pedis arteries. Comparison study from 02/09/21 showed decrease in distal pressures in the right lower extremity. Cardiac echo done in [facility] on 06/15/22 showed normal LVF, mild aortic valve regurgitation, positive bubble study for a small PFO (=10 bubbles) was demonstrated. He denies any fever, chills, nausea, vomiting. He states his appetite is good. Progress of Wound: Right dorsal foot ulcer is healed. The right anterior/lateral ulcers has improved. He has had 3M 2 layer wraps and he is tolerating them fairly well. Objective Data Objective Data Vital Signs: Vital Signs Temp Pulse Resp BP O2 Del Method 96.9 F L 93 18 132/85 H Room Air 07/21/22 13:32 07/21/22 13:32 07/21/22 13:32 07/21/22 13:32 07/07/22 14:17 Oxygen Delivery Method Room Air Weight: 195 lb Body Mass Index (BMI) 26.4 Charges/Coding Procedures Integumentary 111xxx-113xx: 17628 Elen subq tissue 20 sq cm/< Physical Exam Const alert and oriented x3 General Appearance: cooperative HEENT normocephalic Resp normal respiratory effort Cardio regular rate Extremity full ROM and normal capillary refill Extremity Narrative: bilateral edema +1-+2. Bilateral pedal pulses +2 palpable. His edema is improving with the 3 M 2 layer wraps. Skin Wound Narrative: Right anterior lower leg ulcer is superficial, and smaller in size. It is still painful. Herlinda wound is improving. Right dorsal foot remains healed. Neuro CN's II-XII intact bilaterally Psych thought process normal Appearance: grossly normal Debridement Note Debridement Note Wound debrided: anterior leg ulcer Laterality: Right Type of Debridement: Excisional debridement Anesthesia Used: 4% Lidocaine Solution and 5% Lidocaine Gel Depth: Down to and including healthy tissue and in the subcutaneous layer Percentage of wound debrided: 100 Instrument Used: 3mm curette Tissue Removed: Devitalized tissue and slough Severity: Fat Layer Exposed Amount of bleeding with debridement: Mild Bleeding Controlled with: Pressure and Compression and gauze Patient tolerated procedure: Patient tolerated procedure well Post-Debridement Measurements and Additional Note: Post-Debridement Measurements/Treatment WC - Nurse 1 - General Ulcer Assessment Start: 06/30/22 14:59 Freq: Status: Active Protocol: SHU Activity Type Activity Date Activity User E-sign Co-sign Detail Recorded Client Recorded Date Recorded By Document 06/30/22 14:59 KR [id number] 06/30/22 15:01 KR Document 07/02/22 14:10 RB [id number] 07/02/22 14:13 RB Document 07/07/22 14:17 [facility] [id number] 07/07/22 14:22 BM Document 07/14/22 13:33 AK [id number] 07/14/22 13:37 AK Document 07/21/22 13:32 DL [id number] 07/21/22 13:40 DL 06/30/22 07/02/22 07/07/22 14:59 14:10 14:17 WC - Today's Visit Information Type of service Follow-up Visit Nurse-only Follow-up Visit (Physician/CLINICAL CASE MANAGER Visit (Physician/CLINICAL CASE MANAGER ) ) Arrival Mode Ambulatory,Cane Ambulatory Ambulatory Transfer Assistance None None Patient Identification Verified (Name & Yes Yes Yes ) Patient Requires Transmission-Based No Precautions Safety Precautions Height and Weight Body Mass Index (BMI) 26.4 26.4 26.4 BMI Classification Overweight Overweight Overweight Vital Signs Temperature (97.8 F-99.1 F) 97.4 F L 97.1 F L 96.6 F L Temperature Source Temporal Temporal Temporal Pulse Rate (60-100) 78 72 69 Pulse Location Monitor Monitor Monitor Respiratory Rate (12-18) 18 16 Respiratory rate source Observation Observation Oxygen Delivery Method Room Air Blood Pressure (90/60-120/80) 149/77 H 105/53 L 134/73 H Blood Pressure Mean (mm Hg) 101 70 93 Source Monitor Monitor Monitor Position Semi-Fowlers Sitting Sitting Blood Pressure Location Right Arm Left Arm Right Arm History Since Last Visit- (Skip if this is Patient's initial visit) Have you changed medications since your No No No last visit? Any new allergies or adverse reactions No No No Had a fall/change in ADL's that may No No increase risk of falls Signs or symptoms of abuse and/or No No No neglect since last visit Have you been in the hospital since your No No No last visit? Has dressing in place as prescribed Yes Yes Yes Has compression in place as prescribed Yes Yes Yes Has offloadiing in place as prescribed N/A No N/A Experienced any changes in pain level or No No No management Left Footwear Regular Shoe Regular Shoe Right Footwear Regular Shoe Regular Shoe Pain Scale: 0-10 Numeric Is Patient Pain Free? Yes Yes Yes 07/14/22 07/21/22 13:33 13:32 WC - Today's Visit Information Type of service Follow-up Visit Follow-up Visit (Physician/CLINICAL CASE MANAGER (Physician/CLINICAL CASE MANAGER ) ) Arrival Mode Ambulatory,Cane Ambulatory,Cane Transfer Assistance None Patient Identification Verified (Name & Yes Yes ) Patient Requires Transmission-Based No No Precautions Safety Precautions NA Height and Weight Body Mass Index (BMI) 26.4 26.4 BMI Classification Overweight Overweight Vital Signs Temperature (97.8 F-99.1 F) 96.9 F L 96.9 F L Temperature Source Temporal Temporal Pulse Rate (60-100) 75 93 Pulse Location Monitor Monitor Respiratory Rate (12-18) 18 Respiratory rate source Observation Oxygen Delivery Method Blood Pressure (90/60-120/80) 121/64 H 132/85 H Blood Pressure Mean (mm Hg) 83 100 Source Monitor Monitor Position Blood Pressure Location History Since Last Visit- (Skip if this is Patient's initial visit) Have you changed medications since your No No last visit? Any new allergies or adverse reactions No No Had a fall/change in ADL's that may No No increase risk of falls Signs or symptoms of abuse and/or No No neglect since last visit Have you been in the hospital since your No No last visit? Has dressing in place as prescribed Yes Yes Has compression in place as prescribed Has offloadiing in place as prescribed N/A Experienced any changes in pain level or No management Left Footwear Regular Shoe Right Footwear Regular Shoe Pain Scale: 0-10 Numeric Is Patient Pain Free? Yes Yes WC - Nurse 1 - General Ulcer Measurement Start: 06/30/22 14:59 Freq: Status: Active Protocol: Activity Type Activity Date Activity User E-sign Co-sign Detail Recorded Client Recorded Date Recorded By Document 06/30/22 14:59 KR [id number] 06/30/22 15:01 KR Document 07/02/22 14:10 RB [id number] 07/02/22 14:13 RB Document 07/07/22 14:17 [facility] [id number] 07/07/22 14:22 [facility] Document 07/14/22 13:33 AK [id number] 07/14/22 13:37 AK Document 07/21/22 13:32 DL [id number] 07/21/22 13:40 DL 06/30/22 07/02/22 07/07/22 14:59 14:10 14:17 Wound Center Nurse 1 #2 R dorsal foot -Combined with other wound No -Current Size (cm) - Length 0.7 0.1 -Current Size (cm) - Width 1.9 0.1 -Current Size (cm) - Depth 0.1 0.1 -Total Square Cm 1.33 0.01 -Date of Last Picture (Recall this 07/07/22 field) -Photo Taken Yes -Epithelialization Large 67-100% -Tunneling -Undermining/Tunneling -Circular Undermining -Change in Wound Grade/Stage -Exudate Amt Small None Present -Exudate Type Serosanguineous -Wound Margin Distinct, Distinct, Outline Outline Attached Attached -Granulation Amt Medium (34-66%) -Granulation Quality [place] -Slough/Fibrin -Necrosis Amt Small (1-33%) Small (1-33%) -Necrotic Tissue Type Adherent Slough Eschar -Structure Exposed -Texture (Herlinda-wound Skin Appearance) Assessed, Assessed Scarring -Moisture (Herlinda-wound Skin Appearance) No Abnormality, Assessed Assessed -Color (Herlinda-wound Skin Appearance) No Abnormality, Assessed Assessed -Temperature (Herlinda-wound Skin No Abnormality No Abnormality Appearance) (Pt Warm) (Pt Warm) -Tenderness on Palpation (Herlinda-wound No No Skin Appearance) -Ulcer Cleansing Rinsed/ Soap and Water Irrigated with Saline -Foul Odor after Cleansing No No -Anesthetic Used 5% Lidocaine 5% Lidocaine Gel Gel #1 RLE -Combined with other wound No -Current Size (cm) - Length 15 10.5 -Current Size (cm) - Width 13 2 -Current Size (cm) - Depth 0.1 0.1 -Total Square Cm 195 21.0 -Date of Last Picture (Recall this 07/07/22 field) -Photo Taken Yes -Epithelialization None Present -Tunneling No -Undermining/Tunneling No -Circular Undermining No -Change in Wound Grade/Stage -Exudate Amt Large -Exudate Type Serosanguineous Serosanguineous -Wound Margin Distinct, Distinct, Outline Outline Attached Attached -Granulation Amt Large (67-100%) Medium (34-66%) -Granulation Quality Red Red -Slough/Fibrin Yes -Necrosis Amt None Present (0 Medium (34-66%) %) -Necrotic Tissue Type Adherent Slough -Structure Exposed -Texture (Herlinda-wound Skin Appearance) Assessed, Assessed, Scarring Excoriation, Scarring -Moisture (Herlinda-wound Skin Appearance) Assessed, Assessed Maceration, Weeping -Color (Herlinda-wound Skin Appearance) No Abnormality, Assessed, Assessed Erythema -Temperature (Herlinda-wound Skin No Abnormality No Abnormality Appearance) (Pt Warm) (Pt Warm) -Tenderness on Palpation (Herlinda-wound No Yes Skin Appearance) -Ulcer Cleansing Soap and Water Soap and Water -Foul Odor after Cleansing No No -Anesthetic Used 4% Lidocaine 5% Lidocaine Solution,5% Gel Lidocaine Gel Lower Limb Edema Present Yes Yes Right Calf (cm) 39 38.3 Right Ankle (cm) 26 28.2 07/14/22 07/21/22 13:33 13:32 Wound Center Nurse 1 #2 R dorsal foot -Combined with other wound No -Current Size (cm) - Length 0.1 -Current Size (cm) - Width 0.1 -Current Size (cm) - Depth 0.1 -Total Square Cm 0.01 -Date of Last Picture (Recall this 07/14/22 field) -Photo Taken Yes -Epithelialization -Tunneling No -Undermining/Tunneling No -Circular Undermining No -Change in Wound Grade/Stage No -Exudate Amt None Present -Exudate Type -Wound Margin -Granulation Amt None Present (0 %) -Granulation Quality N/A -Slough/Fibrin No -Necrosis Amt None Present (0 %) -Necrotic Tissue Type -Structure Exposed N/A -Texture (Herlinda-wound Skin Appearance) No Abnormality, Assessed -Moisture (Herlinda-wound Skin Appearance) No Abnormality, Assessed -Color (Herlinda-wound Skin Appearance) No Abnormality, Assessed -Temperature (Herlinda-wound Skin No Abnormality Appearance) (Pt Warm) -Tenderness on Palpation (Herlinda-wound No Skin Appearance) -Ulcer Cleansing Soap and Water -Foul Odor after Cleansing No -Anesthetic Used #1 RLE -Combined with other wound No -Current Size (cm) - Length 9 5 -Current Size (cm) - Width 5 4 -Current Size (cm) - Depth 0.1 0.1 -Total Square Cm 45 20 -Date of Last Picture (Recall this 07/14/22 field) -Photo Taken Yes No -Epithelialization None Present -Tunneling No -Undermining/Tunneling No -Circular Undermining No -Change in Wound Grade/Stage No -Exudate Amt Large Medium -Exudate Type Serosanguineous Serosanguineous -Wound Margin Distinct, Distinct, Outline Outline Attached Attached -Granulation Amt Medium (34-66%) Medium (34-66%) -Granulation Quality [place],Red Red -Slough/Fibrin Yes -Necrosis Amt Medium (34-66%) Medium (34-66%) -Necrotic Tissue Type Adherent Slough Adherent Slough -Structure Exposed N/A N/A -Texture (Herlinda-wound Skin Appearance) Assessed, Scarring Scarring -Moisture (Herlinda-wound Skin Appearance) No Abnormality, Dry/Scaly Assessed, Weeping,Dry/ Scaly -Color (Herlinda-wound Skin Appearance) No Abnormality, Hemosiderin Assessed Staining -Temperature (Herlinda-wound Skin No Abnormality No Abnormality Appearance) (Pt Warm) (Pt Warm) -Tenderness on Palpation (Herlinda-wound No No Skin Appearance) -Ulcer Cleansing Soap and Water Soap and Water -Foul Odor after Cleansing No -Anesthetic Used 5% Lidocaine 4% Lidocaine Gel Solution Lower Limb Edema Present No Right Calf (cm) 35.5 34.5 Right Ankle (cm) 25 24.5 WC - Nurse 2 - General Ulcer CM Notes Start: 06/30/22 14:59 Freq: Status: Active Protocol: Activity Type Activity Date Activity User E-sign Co-sign Detail Recorded Client Recorded Date Recorded By Document 06/30/22 15:08 [id number] 06/30/22 15:19 Document 07/07/22 14:31 [id number] 07/07/22 14:39 Document 07/14/22 13:57 [id number] 07/14/22 14:08 Document 07/21/22 13:53 [id number] 07/21/22 13:56 06/30/22 07/07/22 07/14/22 15:08 14:31 13:57 Wound Center Nurse 2 #2 R dorsal foot -Time 15:08 14:32 -Correct Patient Yes Yes No -Correct Side, Site, Position Yes Yes No -Correct Procedure Yes Yes No -Procedure Performed Yes Yes No -Type of Procedure Debridement Debridement -Clinical Debridement Subcutaneous Subcutaneous -Tissue Removed Subcutaneous Subcutaneous -Post Debridement (cm) - Length 0.5 0.5 0 -Post Debridement (cm) - Width 2.5 1.7 0 -Post Debridement (cm) - Depth 0.1 0.1 0 -Total Square (Post) (cm) 1.25 0.85 0 -Area of Debridement (cm) - Length 0.5 0.5 0 -Area of Debridement (cm) - Width 2.5 1.7 0 -Total Square (Area) (cm) 1.25 0.85 0 -Tunneling No No -Undermining/Tunneling No No -Circular Undermining No No -Wound/Ulcer Outcome Not Healed Not Healed Healed- Epithelialized -Ulcer Cleansing Rinsed/ Rinsed/ Irrigated with Irrigated with Saline Saline -Foul Odor after Cleansing No No -Bioengineered Tissue No No -Bleeding Controlled with Pressure Pressure -Treatment Response Procedure Procedure Tolerated Well Tolerated Well -Offloading No No -Debridement - Subq, 1st 20sq cm Yes No -Debridement, SubQ, ea addt'l 20sq cm 6 or part thereof #1 RLE -Time 15:10 14:32 13:58 -Correct Patient Yes Yes Yes -Correct Side, Site, Position Yes Yes Yes -Correct Procedure Yes Yes Yes -Procedure Performed Yes Yes Yes -Type of Procedure Debridement Debridement Debridement -Clinical Debridement Subcutaneous Subcutaneous Subcutaneous -Tissue Removed Subcutaneous Subcutaneous Subcutaneous -Post Debridement (cm) - Length 12.7 11.6 10 -Post Debridement (cm) - Width 10.5 5.5 4.5 -Post Debridement (cm) - Depth 0.1 0.1 0.1 -Total Square (Post) (cm) 133.35 63.80 45.0 -Area of Debridement (cm) - Length 12.7 11.6 10 -Area of Debridement (cm) - Width 10.5 5.5 4.5 -Total Square (Area) (cm) 133.35 63.80 45.0 -Tunneling No No No -Undermining/Tunneling No No No -Circular Undermining No No No -Wound/Ulcer Outcome Not Healed Not Healed Not Healed -Ulcer Cleansing Rinsed/ Rinsed/ Rinsed/ Irrigated with Irrigated with Irrigated with Saline Saline Saline -Foul Odor after Cleansing No No No -Bioengineered Tissue No No No -Bleeding Controlled with Pressure Pressure Pressure -Treatment Response Procedure Procedure Procedure Tolerated Well Tolerated Well Tolerated Well -Offloading No No No -Debridement - Subq, 1st 20sq cm No Yes Yes -Debridement, SubQ, ea addt'l 20sq cm 3 2 or part thereof Pain Scale: 0-10 Numeric Is Patient Pain Free? Yes Yes Yes 07/21/22 13:53 Wound Center Nurse 2 #2 R dorsal foot -Time -Correct Patient -Correct Side, Site, Position -Correct Procedure -Procedure Performed -Type of Procedure -Clinical Debridement -Tissue Removed -Post Debridement (cm) - Length -Post Debridement (cm) - Width -Post Debridement (cm) - Depth -Total Square (Post) (cm) -Area of Debridement (cm) - Length -Area of Debridement (cm) - Width -Total Square (Area) (cm) -Tunneling -Undermining/Tunneling -Circular Undermining -Wound/Ulcer Outcome -Ulcer Cleansing -Foul Odor after Cleansing -Bioengineered Tissue -Bleeding Controlled with -Treatment Response -Offloading -Debridement - Subq, 1st 20sq cm -Debridement, SubQ, ea addt'l 20sq cm or part thereof #1 RLE -Time 13:53 -Correct Patient Yes -Correct Side, Site, Position Yes -Correct Procedure Yes -Procedure Performed Yes -Type of Procedure Debridement -Clinical Debridement Subcutaneous -Tissue Removed Subcutaneous -Post Debridement (cm) - Length 3.0 -Post Debridement (cm) - Width 1.5 -Post Debridement (cm) - Depth 0.1 -Total Square (Post) (cm) 4.50 -Area of Debridement (cm) - Length 3.0 -Area of Debridement (cm) - Width 1.5 -Total Square (Area) (cm) 4.50 -Tunneling No -Undermining/Tunneling No -Circular Undermining No -Wound/Ulcer Outcome Not Healed -Ulcer Cleansing Rinsed/ Irrigated with Saline -Foul Odor after Cleansing No -Bioengineered Tissue No -Bleeding Controlled with Pressure -Treatment Response Procedure Tolerated Well -Offloading No -Debridement - Subq, 1st 20sq cm Yes -Debridement, SubQ, ea addt'l 20sq cm or part thereof Pain Scale: 0-10 Numeric Is Patient Pain Free? Yes - Nurse 3 - General Ulcer D/C NN Start: 06/30/22 14:59 Freq: Status: Active Protocol: Activity Type Activity Date Activity User E-sign Co-sign Detail Recorded Client Recorded Date Recorded By Document 06/30/22 15:38 AK [id number] 06/30/22 15:39 AK Document 07/02/22 14:10 RB [id number] 07/02/22 14:13 RB Document 07/07/22 14:46 KR [id number] 07/07/22 14:47 KR Document 07/14/22 14:12 DL [id number] 07/14/22 14:23 DL Document 07/21/22 14:07 AK [id number] 07/21/22 14:07 AK 06/30/22 07/02/22 07/07/22 15:38 14:10 14:46 Wound Care Nurse 3 #2 R dorsal foot -Ulcer Cleansing Rinsed/ Wound Cleanser Rinsed/ Irrigated with Irrigated with Saline Saline -Foul Odor after Cleansing No -Negative Pressure Wound Therapy N/A -Primary Dressing Applied Optilok 8x12, Aquacel AG 4x4 Aquacel AG 4x4, Silvercel NonAdherent Contact Layer, Optilok 6.5x10 -Aquacel AG 4x4 1 1 -Optilok 6.5x10 1 -Optilok 8x12 1 -Silvercel 1 #1 RLE -Ulcer Cleansing Rinsed/ Wound Cleanser Irrigated with Saline -Foul Odor after Cleansing No -Negative Pressure Wound Therapy N/A -Primary Dressing Applied NonAdherent NonAdherent Contact Layer Contact Layer, Optilok 8x12 -Other Dressing aquacel ag -Primary Dressing Covered/Secured with -Aquacel AG 2x2 -Optilok 6.5x10 -Optilok 8x12 1 Right -Lotion applied to leg before compression wrap -Multi-Layered Wrap Application Multi-Layer Multi-Layer Multi-Layer Comp - Right ($ Comp - Right ($ Comp - Right ($ ) ) ) Treatment Response Procedure Tolerated Well Vital Signs Temperature (97.8 F-99.1 F) 97.1 F L Temperature Source Temporal Pulse Rate (60-100) 72 Pulse Location Monitor Respiratory Rate (12-18) 18 Respiratory rate source Observation Blood Pressure (90/60-120/80) 105/53 L Blood Pressure Mean (mm Hg) 70 Source Monitor Position Sitting Blood Pressure Location Left Arm Pain Scale: 0-10 Numeric Is Patient Pain Free? Yes Yes Yes WC - Visit Discharge Discharge Condition Stable Stable Stable Ambulatory Status Ambulatory Ambulatory Ambulatory,Cane Transportation Private Auto Private Auto Private Auto Medication Reconcilliation completed & Yes No provided to patient/care provider Clinical Summary of Care Provided Yes Yes Facility Type Orders Sent 07/14/22 07/21/22 14:12 14:07 Wound Care Nurse 3 #2 R dorsal foot -Ulcer Cleansing -Foul Odor after Cleansing -Negative Pressure Wound Therapy -Primary Dressing Applied -Aquacel AG 4x4 -Optilok 6.5x10 -Optilok 8x12 -Silvercel #1 RLE -Ulcer Cleansing Not Cleansed Rinsed/ Irrigated with Saline -Foul Odor after Cleansing No No -Negative Pressure Wound Therapy N/A -Primary Dressing Applied Aquacel AG 2x2, Aquacel AG 2x2 NonAdherent Contact Layer, Optilok 6.5x10 -Other Dressing ABD -Primary Dressing Covered/Secured with Dry Gauze & Roll Gauze -Aquacel AG 2x2 1 1 -Optilok 6.5x10 1 -Optilok 8x12 Right -Lotion applied to leg before No compression wrap -Multi-Layered Wrap Application Multi-Layer Multi-Layer Comp - Right ($ Comp - Right ($ ) ) Treatment Response Procedure Tolerated Well Vital Signs Temperature (97.8 F-99.1 F) Temperature Source Pulse Rate (60-100) Pulse Location Respiratory Rate (12-18) Respiratory rate source Blood Pressure (90/60-120/80) Blood Pressure Mean (mm Hg) Source Position Blood Pressure Location Pain Scale: 0-10 Numeric Is Patient Pain Free? Yes Yes WC - Visit Discharge Discharge Condition Stable Stable Ambulatory Status Ambulatory,Cane Ambulatory Transportation Private Auto Private Auto Medication Reconcilliation completed & Yes provided to patient/care provider Clinical Summary of Care Provided Yes Facility Type Home Health Orders Sent Yes Assessment/Plan Assessment/Plan (1) Ulcer of right lower extremity: CODE(S): L97.919 - Non-pressure chronic ulcer of unspecified part of right lower leg with unspecified severity (2) Ulcer of right foot limited to breakdown of skin: CODE(S): L97.511 - Non-pressure chronic ulcer of other part of right foot limited to breakdown of skin (3) Bilateral lower extremity edema: CODE(S): R60.0 - Localized edema (4) Diabetes type 2, controlled: CODE(S): E11.9 - Type 2 diabetes mellitus without complications (5) Cigar smoker: CODE(S): F17.290 - Nicotine dependence, other tobacco product, uncomplicated PLAN: Plan Patient was evaluated at the wound center today. Subcutaneous debridement was performed. His vascular study results are in the HPI. He has some arterial disease that it would be beneficial to speak to a vascular surgeon for possible treatment options. Patient does not want to be referred to one in [place] since he will be moving to [place] after the first of July. We will also refer him to a [facility] wound center close to where he is moving in [place] for continuation of his wound care. Wound care - Moistened Aquacel-Ag covered by ABD. Compression with be light 3M 2 layer wrap to the right leg. It is really improving his edema. He is luly ating it well and will leave it on for a week. Will order him Compression stockings which he will bring to his next visit. Encouraged elevating legs when sitting and avoid standing for long periods of time. Increase protein intake and start taking Vitamin C 1,000mg daily. Follow up one week. Call or come in sooner if develop any concerns.
== END 2022-07-23 23:59 | disposition home or self-care (01) ==
LOC: WC 13:30
PROVIDERS: PCP Internal Medicine; Visit Provider Nurse Practitioner Family
DX: E11.622 Type 2 diabetes mellitus with other skin ulcer (principal); E11.621 Type 2 diabetes mellitus with foot ulcer; L97.512 Non-pressure chronic ulcer of other part of right foot with fat layer exposed; L97.812 Non-pressure chronic ulcer of other part of right lower leg with fat layer exposed; R60.0 Localized edema; I10 Essential (primary) hypertension; F17.290 Nicotine dependence, other tobacco product, uncomplicated; N40.0 Benign prostatic hyperplasia without lower urinary tract symptoms
CPT/HCPCS: 11042; 11045; 29581

== ENCOUNTER 2022-08-11 11:30 | Outpatient (RCR) | payer MEDICARE, SELFPAY ==
[2022-07-24 01:37] VITALS: BP 132/85; PULSE 93; RESP 18; TEMP 36.1; BMI 26.4
[2022-07-28 13:12] VITALS: BP 132/70; PULSE 80; RESP 16; TEMP 36.2; BMI 26.4
--- NOTE | 2022-07-28 14:37 | PN.PCM_ITS ---
History of Present Illness Date of Service: 07/28/22 Chief Complaint: Ulcers on right leg and foot History of Wound: Patient is a 81 male who presents for evaluation of the ulcer on his right anterior leg and right dorsal foot. He states that they opened up 3 weeks ago. He does has issues with leg edema for the past couple months. He went to his PCP, Dr. Zaldivar, on 06/02/22 and he started him on Augmentin, ordered vascular studies and referred him to the wound center. Patient has been covering the ulcer with gauze. He has a history of cardiac stent, DM type 2 diet controlled, BPH, HTN, Cardiac stents, uses an inhaler, smokes little cigars 4- 5/day x 65 years. 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 He states that they will be moving to [place] sometime in the next several months to be closer to their daughter. Wound care - Right anterior/lateral leg ulcerAquacel-Ag topped by gauze daily after washing with soap and water. Will use 3M 2 layer wrap. Venous study done at [place] from 06/02/22 were negative for acute DVT bilaterally and all veins were compressible. Arterial studies done in [place] from 06/15/22 showed right PURA 0.87 and left PURA 1.04. 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 Decreased digital perfusion noted. Biphasic flow in noted in the right popliteal artery, right posterior tibial artery and right dorsalis pedis artery. Triphasic flow is noted in the right common femoral artery. Left lower PVR showed no evidence of arterial occlusive disease, normal digital perfusion, triphasic flow in the left common femoral, popliteal, posterior tibial and dorsalis pedis arteries. Comparison study from 02/09/21 showed decrease in distal pressures in the right lower extremity. Cardiac echo done in [place] on 06/15/22 showed normal LVF, mild aortic valve regurgitation, positive bubble study for a small PFO (=10 bubbles) was demonstrated. He denies any fever, chills, nausea, vomiting. He states his appetite is good. Progress of Wound: The right anterior/lateral ulcers has improved. He has had 3M 2 layer wraps and he is tolerating them fairly. Objective Data Objective Data Vital Signs: Vital Signs Temp Pulse Resp BP 97.2 F L 80 16 132/70 H 07/28/22 13:12 07/28/22 13:12 07/28/22 13:12 07/28/22 13:12 Weight: 195 lb Body Mass Index (BMI) 26.4 Charges/Coding Procedures Integumentary 111xxx-113xx: 46753 Elen subq tissue 20 sq cm/< Physical Exam Const alert and oriented x3 General Appearance: cooperative HEENT normocephalic Resp normal respiratory effort Cardio regular rate Extremity full ROM and normal capillary refill Extremity Narrative: bilateral edema +1-+2. Bilateral pedal pulses +2 palpable. His edema is improving with the 3 M 2 layer wraps. Skin Wound Narrative: Right anterior lower leg ulcer is superficial, and smaller in size. It is still painful. Herlinda wound is improving. Right dorsal foot remains healed. Neuro CN's II-XII intact bilaterally Psych thought process normal Appearance: grossly normal Debridement Note Debridement Note Wound debrided: anterior leg ulcer Laterality: Right Type of Debridement: Excisional debridement Anesthesia Used: 4% Lidocaine Solution and 5% Lidocaine Gel Depth: Down to and including healthy tissue and in the subcutaneous layer Percentage of wound debrided: 100 Instrument Used: 3mm curette Tissue Removed: Devitalized tissue and slough Severity: Fat Layer Exposed Amount of bleeding with debridement: Mild Bleeding Controlled with: Pressure and Compression and gauze Patient tolerated procedure: Patient tolerated procedure well Post-Debridement Measurements and Additional Note: Post-Debridement Measurements/Treatment - Nurse 1 - General Ulcer Assessment Start: 07/28/22 13:11 Freq: Status: Active Protocol: MAUREEN.LIZBET Activity Type Activity Date Activity User E-sign Co-sign Detail Recorded Client Recorded Date Recorded By Document 07/28/22 13:12 BARBARA [id number] 07/28/22 13:22 BARBARA 07/28/22 13:12 - Today's Visit Information Type of service Follow-up Visit (Physician/MARKETING CLERK ) Arrival Mode Ambulatory,Cane Patient Identification Verified (Name & Yes ) Patient Requires Transmission-Based No Precautions Height and Weight Body Mass Index (BMI) 26.4 BMI Classification Overweight Vital Signs Temperature (97.8 F-99.1 F) 97.2 F L Temperature Source Oral Pulse Rate (60-100) 80 Pulse Location Monitor Respiratory Rate (12-18) 16 Respiratory rate source Observation Blood Pressure (90/60-120/80) 132/70 H Blood Pressure Mean (mm Hg) 90 Source Monitor Position Sitting Blood Pressure Location Left Arm History Since Last Visit- (Skip if this is Patient's initial visit) Have you changed medications since your No last visit? Any new allergies or adverse reactions No Had a fall/change in ADL's that may No increase risk of falls Signs or symptoms of abuse and/or No neglect since last visit Have you been in the hospital since your No last visit? Has dressing in place as prescribed Yes Has compression in place as prescribed Yes Has offloadiing in place as prescribed N/A Experienced any changes in pain level or No management Left Footwear Regular Shoe Right Footwear Regular Shoe Pain Scale: 0-10 Numeric Is Patient Pain Free? Yes WC - Nurse 1 - General Ulcer Measurement Start: 07/28/22 13:11 Freq: Status: Active Protocol: Activity Type Activity Date Activity User E-sign Co-sign Detail Recorded Client Recorded Date Recorded By Document 07/28/22 13:12 BARBARA [id number] 07/28/22 13:22 BARBARA 07/28/22 13:12 Wound Center Nurse 1 #1 RLE -Combined with other wound No -Current Size (cm) - Length 2.5 -Current Size (cm) - Width 0.6 -Current Size (cm) - Depth 0.1 -Total Square Cm 1.50 -Photo Taken Yes -Epithelialization Medium 34-66% -Tunneling No -Undermining/Tunneling No -Circular Undermining No -Exudate Amt Small -Exudate Type Serosanguineous -Wound Margin Flat & Intact -Granulation Amt Large (67-100%) -Granulation Quality Red -Slough/Fibrin Yes -Necrosis Amt Small (1-33%) -Necrotic Tissue Type Adherent Slough -Structure Exposed N/A -Texture (Herlinda-wound Skin Appearance) Assessed, Localized Edema -Moisture (Herlinda-wound Skin Appearance) Assessed,Dry/ Scaly -Color (Herlinda-wound Skin Appearance) Assessed -Temperature (Herlinda-wound Skin No Abnormality Appearance) (Pt Warm) -Tenderness on Palpation (Herlinda-wound No Skin Appearance) -Ulcer Cleansing Wound Cleanser -Foul Odor after Cleansing No -Anesthetic Used 5% Lidocaine Gel Lower Limb Edema Present Yes Right Calf (cm) 34 Right Ankle (cm) 24.5 WC - Nurse 2 - General Ulcer CM Notes Start: 07/28/22 13:11 Freq: Status: Active Protocol: Activity Type Activity Date Activity User E-sign Co-sign Detail Recorded Client Recorded Date Recorded By Document 07/28/22 13:26 [id number] 07/28/22 13:32 JF 07/28/22 13:26 Wound Center Nurse 2 #1 RLE -Time 13:27 -Correct Patient Yes -Correct Side, Site, Position Yes -Correct Procedure Yes -Procedure Performed Yes -Type of Procedure Debridement -Clinical Debridement Subcutaneous -Tissue Removed Subcutaneous -Post Debridement (cm) - Length 3.4 -Post Debridement (cm) - Width 1.0 -Post Debridement (cm) - Depth 0.1 -Total Square (Post) (cm) 3.40 -Area of Debridement (cm) - Length 3.4 -Area of Debridement (cm) - Width 1.0 -Total Square (Area) (cm) 3.40 -Tunneling No -Undermining/Tunneling No -Circular Undermining No -Wound/Ulcer Outcome Not Healed -Ulcer Cleansing Rinsed/ Irrigated with Saline -Foul Odor after Cleansing No -Bioengineered Tissue No -Bleeding Controlled with Pressure -Treatment Response Procedure Tolerated Well -Offloading No -Debridement - Subq, 1st 20sq cm Yes Pain Scale: 0-10 Numeric Is Patient Pain Free? Yes - Nurse 3 - General Ulcer D/C NN Start: 07/28/22 13:11 Freq: Status: Active Protocol: Activity Type Activity Date Activity User E-sign Co-sign Detail Recorded Client Recorded Date Recorded By Document 07/28/22 13:47 MW [id number] 07/28/22 13:48 MW 07/28/22 13:47 Wound Care Nurse 3 #1 RLE -Ulcer Cleansing Rinsed/ Irrigated with Saline -Foul Odor after Cleansing No -Negative Pressure Wound Therapy N/A -Primary Dressing Applied NonAdherent Contact Layer -Other Dressing Aquacel AG -Primary Dressing Covered/Secured with Dry Gauze Right -Lotion applied to leg before Yes compression wrap -Multi-Layered Wrap Application Multi-Layer Comp - Right ($ ) Treatment Response Procedure Tolerated Well Pain Scale: 0-10 Numeric Is Patient Pain Free? Yes Teaching: Wound Center Compression Wraps & Stockings -Person Taught Patient -Teaching Method Discussion, Demonstration -Response to teaching Verbalize understanding Dressing Your Wound -Person Taught Patient -Teaching Method Discussion, Demonstration -Response to teaching Verbalize understanding WC - Visit Discharge Discharge Condition Stable Ambulatory Status Ambulatory,Cane Transportation Private Auto Accompanied by self Medication Reconcilliation completed & No provided to patient/care provider Clinical Summary of Care Provided Yes Assessment/Plan Assessment/Plan (1) Ulcer of right lower extremity: CODE(S): L97.919 - Non-pressure chronic ulcer of unspecified part of right lower leg with unspecified severity (2) Ulcer of right foot limited to breakdown of skin: CODE(S): L97.511 - Non-pressure chronic ulcer of other part of right foot limited to breakdown of skin (3) Bilateral lower extremity edema: CODE(S): R60.0 - Localized edema (4) Diabetes type 2, controlled: CODE(S): E11.9 - Type 2 diabetes mellitus without complications (5) Cigar smoker: CODE(S): F17.290 - Nicotine dependence, other tobacco product, uncomplicated PLAN: Plan Patient was evaluated at the wound center today. Subcutaneous debridement was performed. His vascular study results are in the HPI. He has some arterial disease that it would be beneficial to speak to a vascular surgeon for possible treatment options. Patient does not want to be referred to one in [place] since he will be moving to [place] after the first july. We will also refer him to a [facility] wound center close to where he is moving in [place] for continuation of his wound care. Wound care - Moistened Aquacel-Ag covered by adaptic and topped with gauze. Compression with be light 3M 2 layer wrap to the right leg. It is really improving his edema. He is tolerating it well and will leave it on for a week. Will order him Compression stockings which he will bring to his next visit. Stressed to him that he NEEDS to get the stockings. Encouraged elevating legs when sitting and avoid standing for long periods of time. Increase protein intake and start taking Vitamin C 1,000mg daily. Follow up one week. Call or come in sooner if develop any concerns.
[2022-08-04 11:45] VITALS: BP 144/80; PULSE 69; RESP 20; TEMP 36.5; BMI 26.4
--- NOTE | 2022-08-04 11:52 | WC ---
pt RLE dressing of aquacel AG adhered to unable to meaure wound wound left ot soak in 4% lidocaine until FILTER SCREEN CLEANER sees pt.
--- NOTE | 2022-08-04 12:36 | PN.PCM_ITS ---
History of Present Illness Date of Service: 08/04/22 Chief Complaint: Ulcers on right leg and foot History of Wound: Patient is a 81 male who presents for evaluation of the ulcer on his right anterior leg and right dorsal foot. He states that they opened up 3 weeks ago. He does has issues with leg edema for the past couple months. He went to his PCP, Dr. Zaldivar, on 06/02/22 and he started him on Augmentin, ordered vascular studies and referred him to the wound center. Patient has been covering the ulcer with gauze. He has a history of cardiac stent, DM type 2 diet controlled, BPH, HTN, Cardiac stents, uses an inhaler, smokes little cigars 4- 5/day x 65 years. 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 He states that they will be moving to [place] sometime in the next several months to be closer to their daughter. Wound care - Right anterior/lateral leg ulcer Collagen hydrogel topped with adaptic and covered by gauze daily after washing with soap and water. Venous study done at [place] from 06/02/22 were negative for acute DVT bilaterally and all veins were compressible. Arterial studies done in [place] from 06/15/22 showed right PURA 0.87 and left PURA 1.04. 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 Decreased digital perfusion noted. Biphasic flow in noted in the right popliteal artery, right posterior tibial artery and right dorsalis pedis artery. Triphasic flow is noted in the right common femoral artery. Left lower PVR showed no evidence of arterial occlusive disease, normal digital perfusion, triphasic flow in the left common femoral, popliteal, posterior tibial and dorsalis pedis arteries. Comparison study from 02/09/21 showed decrease in distal pressures in the right lower extremity. Cardiac echo done in [place] on 06/15/22 showed normal LVF, mild aortic valve regurgitation, positive bubble study for a small PFO (=10 bubbles) was demonstrated. He denies any fever, chills, nausea, vomiting. He states his appetite is good. Progress of Wound: The right anterior/lateral ulcer cluster is smaller with less depth. Objective Data Objective Data Vital Signs: Vital Signs Temp Pulse Resp BP 97.7 F L 69 20 H 144/80 H 08/04/22 11:45 08/04/22 11:45 08/04/22 11:45 08/04/22 11:45 Weight: 195 lb Body Mass Index (BMI) 26.4 Charges/Coding Procedures Integumentary 111xxx-113xx: 85148 Elen subq tissue 20 sq cm/< Physical Exam Const alert and oriented x3 General Appearance: cooperative HEENT normocephalic Resp normal respiratory effort Cardio regular rate Extremity full ROM and normal capillary refill Extremity Narrative: Right leg edema +1 with 3M 2 layer wraps. Skin Wound Narrative: Right anterior lower leg ulcer is superficial, and smaller in size. It is still painful. Herlinda wound is improving. Right dorsal foot remains healed. Neuro CN's II-XII intact bilaterally Psych thought process normal Appearance: grossly normal Debridement Note Debridement Note Wound debrided: anterior leg ulcer cluster Laterality: Right Type of Debridement: Excisional debridement Anesthesia Used: 4% Lidocaine Solution and 5% Lidocaine Gel Depth: Down to and including healthy tissue and in the subcutaneous layer Percentage of wound debrided: 100 Instrument Used: 3mm curette Tissue Removed: Devitalized tissue and slough Severity: Fat Layer Exposed Amount of bleeding with debridement: Mild Bleeding Controlled with: Pressure and Compression and gauze Patient tolerated procedure: Patient tolerated procedure well Post-Debridement Measurements and Additional Note: Post-Debridement Measurements/Treatment - Nurse 1 - General Ulcer Assessment Start: 07/28/22 13:11 Freq: Status: Active Protocol: SHU Activity Type Activity Date Activity User E-sign Co-sign Detail Recorded Client Recorded Date Recorded By Document 07/28/22 13:12 [id number] 07/28/22 13:22 Document 08/04/22 11:45 DL [id number] 08/04/22 11:54 DL 07/28/22 08/04/22 13:12 11:45 - Today's Visit Information Type of service Follow-up Visit Follow-up Visit (Physician/STRAP MACHINE OPERATOR AUTOMATIC (Physician/STRAP MACHINE OPERATOR AUTOMATIC ) ) Arrival Mode Ambulatory,Cane Ambulatory Transfer Assistance None Patient Identification Verified (Name & Yes Yes ) Patient Requires Transmission-Based No No Precautions Height and Weight Body Mass Index (BMI) 26.4 26.4 BMI Classification Overweight Overweight Vital Signs Temperature (97.8 F-99.1 F) 97.2 F L 97.7 F L Temperature Source Oral Temporal Pulse Rate (60-100) 80 69 Pulse Location Monitor Monitor Respiratory Rate (12-18) 16 20 H Respiratory rate source Observation Observation Blood Pressure (90/60-120/80) 132/70 H 144/80 H Blood Pressure Mean (mm Hg) 90 101 Source Monitor Monitor Position Sitting Blood Pressure Location Left Arm History Since Last Visit- (Skip if this is Patient's initial visit) Have you changed medications since your No No last visit? Any new allergies or adverse reactions No No Had a fall/change in ADL's that may No No increase risk of falls Signs or symptoms of abuse and/or No No neglect since last visit Have you been in the hospital since your No No last visit? Has dressing in place as prescribed Yes Yes Has compression in place as prescribed Yes Yes Has offloadiing in place as prescribed N/A N/A Experienced any changes in pain level or No No management Left Footwear Regular Shoe Right Footwear Regular Shoe Pain Scale: 0-10 Numeric Is Patient Pain Free? Yes Yes WC - Nurse 1 - General Ulcer Measurement Start: 07/28/22 13:11 Freq: Status: Active Protocol: Activity Type Activity Date Activity User E-sign Co-sign Detail Recorded Client Recorded Date Recorded By Document 07/28/22 13:12 [id number] 07/28/22 13:22 Document 08/04/22 11:45 DL [id number] 08/04/22 11:54 DL 07/28/22 08/04/22 13:12 11:45 Wound Center Nurse 1 #1 RLE cluster -Combined with other wound No No -Current Size (cm) - Length 2.5 0.1 -Current Size (cm) - Width 0.6 0.1 -Current Size (cm) - Depth 0.1 0.1 -Total Square Cm 1.50 0.01 -Photo Taken Yes -Epithelialization Medium 34-66% -Tunneling No No -Undermining/Tunneling No No -Circular Undermining No No -Exudate Amt Small Medium -Exudate Type Serosanguineous Serosanguineous -Wound Margin Flat & Intact Distinct, Outline Attached -Granulation Amt Large (67-100%) Medium (34-66%) -Granulation Quality [place] -Slough/Fibrin Yes Yes -Necrosis Amt Small (1-33%) Medium (34-66%) -Necrotic Tissue Type Adherent Slough Adherent Slough -Structure Exposed N/A N/A -Texture (Herlinda-wound Skin Appearance) Assessed, Assessed Localized Edema -Moisture (Herlinda-wound Skin Appearance) Assessed,Dry/ Assessed Scaly -Color (Herlinda-wound Skin Appearance) Assessed Assessed -Temperature (Herlinda-wound Skin No Abnormality No Abnormality Appearance) (Pt Warm) (Pt Warm) -Tenderness on Palpation (Herlinda-wound No No Skin Appearance) -Ulcer Cleansing Wound Cleanser Wound Cleanser -Foul Odor after Cleansing No No -Anesthetic Used 5% Lidocaine 4% Lidocaine Gel Solution Lower Limb Edema Present Yes Yes Right Calf (cm) 34 33.5 Right Ankle (cm) 24.5 24.5 08/04/22 11:52 Wound Center by Juanita Prieto pt RLE dressing of aquacel AG adhered to unable to meaure wound wound left ot soak in 4% lidocaine until ELECTRONICS TECH sees pt. Initialized on 08/04/22 11:52 - END OF NOTE WC - Nurse 2 - General Ulcer CM Notes Start: 07/28/22 13:11 Freq: Status: Active Protocol: Activity Type Activity Date Activity User E-sign Co-sign Detail Recorded Client Recorded Date Recorded By Document 07/28/22 13:26 [id number] 07/28/22 13:32 Document 08/04/22 12:03 [id number] 08/04/22 12:05 07/28/22 08/04/22 13:26 12:03 Wound Center Nurse 2 #1 RLE cluster -Time 13:27 12:04 -Correct Patient Yes Yes -Correct Side, Site, Position Yes Yes -Correct Procedure Yes Yes -Procedure Performed Yes -Type of Procedure Debridement Debridement -Clinical Debridement Subcutaneous Subcutaneous -Tissue Removed Subcutaneous Subcutaneous -Post Debridement (cm) - Length 3.4 4.1 -Post Debridement (cm) - Width 1.0 0.5 -Post Debridement (cm) - Depth 0.1 0.1 -Total Square (Post) (cm) 3.40 2.05 -Area of Debridement (cm) - Length 3.4 4.1 -Area of Debridement (cm) - Width 1.0 0.5 -Total Square (Area) (cm) 3.40 2.05 -Tunneling No No -Undermining/Tunneling No No -Circular Undermining No No -Wound/Ulcer Outcome Not Healed Not Healed -Ulcer Cleansing Rinsed/ Rinsed/ Irrigated with Irrigated with Saline Saline -Foul Odor after Cleansing No -Bioengineered Tissue No No -Bleeding Controlled with Pressure Pressure -Treatment Response Procedure Procedure Tolerated Well Tolerated Well -Offloading No No -Debridement - Subq, 1st 20sq cm Yes Yes Pain Scale: 0-10 Numeric Is Patient Pain Free? Yes Yes - Nurse 3 - General Ulcer D/C NN Start: 07/28/22 13:11 Freq: Status: Active Protocol: Activity Type Activity Date Activity User E-sign Co-sign Detail Recorded Client Recorded Date Recorded By Document 07/28/22 13:47 MW [id number] 07/28/22 13:48 MW Document 08/04/22 12:11 [facility] [id number] 08/04/22 12:12 [facility] 07/28/22 08/04/22 13:47 12:11 Wound Care Nurse 3 #1 RLE cluster -Ulcer Cleansing Rinsed/ Rinsed/ Irrigated with Irrigated with Saline Saline -Foul Odor after Cleansing No No -Negative Pressure Wound Therapy N/A -Primary Dressing Applied NonAdherent C Hydrogel ($), Contact Layer NonAdherent Contact Layer -Other Dressing Aquacel AG -Primary Dressing Covered/Secured with Dry Gauze Dry Gauze & Roll Gauze, Secured with Tape -Other Covering drsg per dl core paster Right -Lotion applied to leg before Yes compression wrap -Multi-Layered Wrap Application Multi-Layer Comp - Right ($ ) -Other dl applied pts new compression stocking Treatment Response Procedure Procedure Tolerated Well Tolerated Well Pain Scale: 0-10 Numeric Is Patient Pain Free? Yes Yes Teaching: Wound Center Compression Wraps & Stockings -Person Taught Patient -Teaching Method Discussion, Demonstration -Response to teaching Verbalize understanding Dressing Your Wound -Person Taught Patient -Teaching Method Discussion, Demonstration -Response to teaching Verbalize understanding WC - Visit Discharge Discharge Condition Stable Stable Ambulatory Status Ambulatory,Cane Ambulatory Transportation Private Auto Private Auto Accompanied by self Medication Reconcilliation completed & No provided to patient/care provider Clinical Summary of Care Provided Yes Assessment/Plan Assessment/Plan (1) Ulcer of right lower extremity: CODE(S): L97.919 - Non-pressure chronic ulcer of unspecified part of right lower leg with unspecified severity (2) Ulcer of right foot limited to breakdown of skin: CODE(S): L97.511 - Non-pressure chronic ulcer of other part of right foot limited to breakdown of skin (3) Bilateral lower extremity edema: CODE(S): R60.0 - Localized edema (4) Diabetes type 2, controlled: CODE(S): E11.9 - Type 2 diabetes mellitus without complications (5) Cigar smoker: CODE(S): F17.290 - Nicotine dependence, other tobacco product, uncomplicated PLAN: Plan Patient was evaluated at the wound center today. Subcutaneous debridement was performed. His vascular study results are in the HPI. He has some arterial disease that it would be beneficial to speak to a vascular surgeon for possible treatment options. Patient does not want to be referred to one in [place] since he will be moving to [place] after the first july. We will also refer him to a [facility] wound center close to where he is moving in [place] for continuation of his wound care. Wound care - Collagen hydrogel covered by adaptic and topped with gauze. Compression will be compression stockings 20-30 mmHg to the right leg. It is really improving his edema. He is tolerating it well and will leave it on for a week. Will order him Compression stockings which he will bring to his next visit. Stressed to him that he NEEDS to get the stockings. Encouraged elevating legs when sitting and avoid standing for long periods of time. Increase protein intake and start taking Vitamin C 1,000mg daily. Follow up one week. Call or come in sooner if develop any concerns.
[2022-08-11 11:14] VITALS: BP 124/73; PULSE 67; RESP 18; TEMP 35.6; BMI 26.4
--- NOTE | 2022-08-11 12:21 | PCM.WC.PN ---
History of Present Illness Date of Service: 08/11/22 Chief Complaint: Ulcers on right leg and foot History of Wound: Patient is a 81 male who presents for evaluation of the ulcer on his right anterior leg and right dorsal foot. He states that they opened up 3 weeks ago. He does has issues with leg edema for the past couple months. He went to his PCP, Dr. Zaldivar, on 06/02/22 and he started him on Augmentin, ordered vascular studies and referred him to the wound center. Patient has been covering the ulcer with gauze. He has a history of cardiac stent, DM type 2 diet controlled, BPH, HTN, Cardiac stents, uses an inhaler, smokes little cigars 4-5/day x 65 years. 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 He states that they will be moving to [place] sometime in the next several months to be closer to their daughter. Wound care - Right anterior/lateral leg ulcer Collagen hydrogel topped with adaptic and covered by gauze daily after washing with soap and water. Venous study done at [place] from 06/02/22 were negative for acute DVT bilaterally and all veins were compressible. Arterial studies done in [place] from 06/15/22 showed right PURA 0.87 and left PURA 1.04. 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 Decreased digital perfusion noted. Biphasic flow in noted in the right popliteal artery, right posterior tibial artery and right dorsalis pedis artery. Triphasic flow is noted in the right common femoral artery. Left lower PVR showed no evidence of arterial occlusive disease, normal digital perfusion, triphasic flow in the left common femoral, popliteal, posterior tibial and dorsalis pedis arteries. Comparison study from 02/09/21 showed decrease in distal pressures in the right lower extremity. Cardiac echo done in [place] on 06/15/22 showed normal LVF, mild aortic valve regurgitation, positive bubble study for a small PFO (=10 bubbles) was demonstrated. He denies any fever, chills, nausea, vomiting. He states his appetite is good. Progress of Wound: The right anterior/lateral ulcer cluster is healed, but there is one area where the scabbing was attached that tore the fragile epithelial tissue. His right leg edema is much worse today. He states that he has not been consistently wearing his compression. He states that when he is wearing his compression stockings, he is experiencing occasional sharp, shooting pains, like an electric shock. Suspect this is because his leg is so much more swollen. There is no erythema or calf pain. Negative Ryan's sign. Objective Data Objective Data Vital Signs: Vital Signs Temp Pulse Resp BP 96.1 F L 67 18 124/73 H 08/11/22 11:14 08/11/22 11:14 08/11/22 11:14 08/11/22 11:14 Weight: 195 lb Body Mass Index (BMI) 26.4 Charges/Coding Visit Charges Office Visits / Consults: [id number] OV L3 Est Physical Exam Const alert and oriented x3 General Appearance: cooperative HEENT normocephalic Resp normal respiratory effort Effort and Inspection: able to speak in complete sentences Cardio regular rate Extremity full ROM and normal capillary refill Extremity Narrative: Right leg edema +2-+3 Skin Wound Narrative: Right lateral leg ulcer cluster is healed, there is one small area that re-opened when removing the scabbing due the epithelial skin being very fragile. No erythema, +2-+3 edema. Neuro CN's II-XII intact bilaterally Psych thought process normal Appearance: grossly normal Debridement Note Debridement Note No debridement was completed: No debridement was completed today Post-Debridement Measurements and Additional Note: Post-Debridement Measurements/Treatment - Nurse 1 - General Ulcer Assessment Start: 07/28/22 13:11 Freq: Status: Active Protocol: .LOWRICKY Activity Type Activity Date Activity User E-sign Co-sign Detail Recorded Client Recorded Date Recorded By Document 07/28/22 13:12 [id number] 07/28/22 13:22 Document 08/04/22 11:45 [id number] 08/04/22 11:54 Document 08/11/22 11:14 [facility] [id number] 08/11/22 11:22 [facility] 07/28/22 08/04/22 08/11/22 13:12 11:45 11:14 - Today's Visit Information Type of service Follow-up Visit Follow-up Visit Follow-up Visit (Physician/CREDIT CARD SPECIALIST (Physician/CREDIT CARD SPECIALIST (Physician/CREDIT CARD SPECIALIST ) ) ) Arrival Mode Ambulatory,Cane Ambulatory Ambulatory,Cane Transfer Assistance None None Patient Identification Verified (Name & Yes Yes Yes ) Patient Requires Transmission-Based No No No Precautions Height and Weight Body Mass Index (BMI) 26.4 26.4 26.4 BMI Classification Overweight Overweight Overweight Vital Signs Temperature (97.8 F-99.1 F) 97.2 F L 97.7 F L 96.1 F L Temperature Source Oral Temporal Temporal Pulse Rate (60-100) 80 69 67 Pulse Location Monitor Monitor Monitor Respiratory Rate (12-18) 16 20 H 18 Respiratory rate source Observation Observation Observation Blood Pressure (90/60-120/80) 132/70 H 144/80 H 124/73 H Blood Pressure Mean (mm Hg) 90 101 90 Source Monitor Monitor Monitor Position Sitting Semi-Fowlers Blood Pressure Location Left Arm Left Arm History Since Last Visit- (Skip if this is Patient's initial visit) Have you changed medications since your No No No last visit? Any new allergies or adverse reactions No No No Had a fall/change in ADL's that may No No No increase risk of falls Signs or symptoms of abuse and/or No No No neglect since last visit Have you been in the hospital since your No No No last visit? Has dressing in place as prescribed Yes Yes Yes Has compression in place as prescribed Yes Yes Yes Has offloadiing in place as prescribed N/A N/A No Experienced any changes in pain level or No No No management Left Footwear Regular Shoe Right Footwear Regular Shoe Pain Scale: 0-10 Numeric Is Patient Pain Free? Yes Yes Yes WC - Nurse 1 - General Ulcer Measurement Start: 07/28/22 13:11 Freq: Status: Active Protocol: Activity Type Activity Date Activity User E-sign Co-sign Detail Recorded Client Recorded Date Recorded By Document 07/28/22 13:12 [id number] 07/28/22 13:22 Document 08/04/22 11:45 DL [id number] 08/04/22 11:54 DL Document 08/11/22 11:14 [facility] [id number] 08/11/22 11:22 [facility] 07/28/22 08/04/22 08/11/22 13:12 11:45 11:14 Wound Center Nurse 1 #1 RLE cluster -Combined with other wound No No No -Current Size (cm) - Length 2.5 0.1 0.1 -Current Size (cm) - Width 0.6 0.1 0.1 -Current Size (cm) - Depth 0.1 0.1 0.1 -Total Square Cm 1.50 0.01 0.01 -Photo Taken Yes Yes -Epithelialization Medium 34-66% -Tunneling No No No -Undermining/Tunneling No No No -Circular Undermining No No No -Exudate Amt Small Medium Small -Exudate Type Serosanguineous Serosanguineous Serosanguineous -Wound Margin Flat & Intact Distinct, Distinct, Outline Outline Attached Attached -Granulation Amt Large (67-100%) Medium (34-66%) Small (1-33%) -Granulation Quality [place] -Slough/Fibrin Yes Yes Yes -Necrosis Amt Small (1-33%) Medium (34-66%) Large (67-100%) -Necrotic Tissue Type Adherent Slough Adherent Slough Adherent Slough -Structure Exposed N/A N/A N/A -Texture (Herlinda-wound Skin Appearance) Assessed, Assessed Assessed Localized Edema -Moisture (Herlinda-wound Skin Appearance) Assessed,Dry/ Assessed Assessed,Dry/ Scaly Scaly -Color (Herlinda-wound Skin Appearance) Assessed Assessed Assessed, Hemosiderin Staining -Temperature (Herlinda-wound Skin No Abnormality No Abnormality No Abnormality Appearance) (Pt Warm) (Pt Warm) (Pt Warm) -Tenderness on Palpation (Herlinda-wound No No No Skin Appearance) -Ulcer Cleansing Wound Cleanser Wound Cleanser Wound Cleanser -Foul Odor after Cleansing No No No -Anesthetic Used 5% Lidocaine 4% Lidocaine 5% Lidocaine Gel Solution Gel Lower Limb Edema Present Yes Yes Yes Right Calf (cm) 34 33.5 45.5 Right Ankle (cm) 24.5 24.5 24.2 08/04/22 11:52 Wound Center by Juanita Prieto pt RLE dressing of aquacel AG adhered to unable to meaure wound wound left ot soak in 4% lidocaine until LOADMASTER sees pt. Initialized on 08/04/22 11:52 - END OF NOTE WC - Nurse 2 - General Ulcer CM Notes Start: 07/28/22 13:11 Freq: Status: Active Protocol: Activity Type Activity Date Activity User E-sign Co-sign Detail Recorded Client Recorded Date Recorded By Document 07/28/22 13:26 [id number] 07/28/22 13:32 Document 08/04/22 12:03 [id number] 08/04/22 12:05 Document 08/11/22 11:44 [id number] 08/11/22 11:49 07/28/22 08/04/22 08/11/22 13:26 12:03 11:44 Wound Center Nurse 2 #1 RLE cluster -Time 13:27 12:04 -Correct Patient Yes Yes No -Correct Side, Site, Position Yes Yes No -Correct Procedure Yes Yes No -Procedure Performed Yes No -Type of Procedure Debridement Debridement -Clinical Debridement Subcutaneous Subcutaneous -Tissue Removed Subcutaneous Subcutaneous -Post Debridement (cm) - Length 3.4 4.1 0 -Post Debridement (cm) - Width 1.0 0.5 0 -Post Debridement (cm) - Depth 0.1 0.1 0 -Total Square (Post) (cm) 3.40 2.05 0 -Area of Debridement (cm) - Length 3.4 4.1 0 -Area of Debridement (cm) - Width 1.0 0.5 0 -Total Square (Area) (cm) 3.40 2.05 0 -Tunneling No No -Undermining/Tunneling No No -Circular Undermining No No -Wound/Ulcer Outcome Not Healed Not Healed Healed- Epithelialized -Ulcer Cleansing Rinsed/ Rinsed/ Irrigated with Irrigated with Saline Saline -Foul Odor after Cleansing No -Bioengineered Tissue No No -Bleeding Controlled with Pressure Pressure -Treatment Response Procedure Procedure Tolerated Well Tolerated Well -Offloading No No -Debridement - Subq, 1st 20sq cm Yes Yes Pain Scale: 0-10 Numeric Is Patient Pain Free? Yes Yes Yes WC - Nurse 3 - General Ulcer D/C NN Start: 07/28/22 13:11 Freq: Status: Active Protocol: Activity Type Activity Date Activity User E-sign Co-sign Detail Recorded Client Recorded Date Recorded By Document 07/28/22 13:47 MW [id number] 07/28/22 13:48 MW Document 08/04/22 12:11 [facility] [id number] 08/04/22 12:12 BMF Document 08/11/22 12:08 DL [id number] 08/11/22 12:11 DL 07/28/22 08/04/22 08/11/22 13:47 12:11 12:08 Wound Care Nurse 3 #1 RLE cluster -Ulcer Cleansing Rinsed/ Rinsed/ Irrigated with Irrigated with Saline Saline -Foul Odor after Cleansing No No -Negative Pressure Wound Therapy N/A -Primary Dressing Applied NonAdherent C Hydrogel ($), NonAdherent Contact Layer NonAdherent Contact Layer Contact Layer -Other Dressing Aquacel AG hydrogel -Primary Dressing Covered/Secured with Dry Gauze Dry Gauze & Dry Gauze Roll Gauze, Secured with Tape -Other Covering drsg per dl water leak repairer Right -Lotion applied to leg before Yes compression wrap -Multi-Layered Wrap Application Multi-Layer Multi-Layer Comp - Right ($ Comp - Right ($ ) ) -Other dl applied pts new compression stocking Treatment Response Procedure Procedure Procedure Tolerated Well Tolerated Well Tolerated Well Pain Scale: 0-10 Numeric Is Patient Pain Free? Yes Yes Yes Teaching: Wound Center Compression Wraps & Stockings -Person Taught Patient -Teaching Method Discussion, Demonstration -Response to teaching Verbalize understanding Dressing Your Wound -Person Taught Patient -Teaching Method Discussion, Demonstration -Response to teaching Verbalize understanding WC - Visit Discharge Discharge Condition Stable Stable Stable Ambulatory Status Ambulatory,Cane Ambulatory Ambulatory Transportation Private Auto Private Auto Private Auto Accompanied by self Medication Reconcilliation completed & No provided to patient/care provider Clinical Summary of Care Provided Yes Notes: Pt healed and discharged. Pt to wear 3M for 1 week and then remove and wear his stockings. Pt discharged and movingto [place]. Assessment/Plan Assessment/Plan (1) Ulcer of right lower extremity: CODE(S): L97.919 - Non-pressure chronic ulcer of unspecified part of right lower leg with unspecified severity (2) Ulcer of right foot limited to breakdown of skin: CODE(S): L97.511 - Non-pressure chronic ulcer of other part of right foot limited to breakdown of skin (3) Bilateral lower extremity edema: CODE(S): R60.0 - Localized edema (4) Diabetes type 2, controlled: CODE(S): E11.9 - Type 2 diabetes mellitus without complications (5) Cigar smoker: CODE(S): F17.290 - Nicotine dependence, other tobacco product, uncomplicated PLAN: Plan Patient was evaluated at the wound center today. Subcutaneous debridement was performed. His vascular study results are in the HPI. He has some arterial disease that it would be beneficial to discuss with a vascular surgeon for possible treatment options. Patient does not want to be referred to one in [place] since he will be moving to [place]. He is supposed to leave this weekend for [place]. We will also refer him to the wound center at [facility] for follow through, to make sure his edema is under better control, make sure his ulcer remains healed, and maybe they can refer him to a local vascular surgeon. Wound care - Collagen hydrogel covered by adaptic and topped with gauze for another week for the area of compromise when the scabbing was removed. Will place 3M 2layer wraps on his right leg to get the edema under better control. Instructed him to leave them on for no longer than one week. He may want to remove them before he leaves this weekend for [place]. Once the 3M 2 layer wraps are removed his compression will be stockings 20-30 mmHg to the right leg. Stressed to him that he NEEDS to get the stockings. Encouraged elevating legs when sitting and avoid standing for long periods of time. Educated patient about getting out and walking every hour, no longer that 1.5 hours while traveling down to [place]. Stressed that he is at an increased risk for blood clots and he needs to do this to help prevent a DVT. Patient verbalized understanding. Follow up at the wound center in [place]. Gave him my business card with both my office number and our wound center number for him to call if he has any questions or concerns.
== END 2022-08-23 23:59 | disposition home or self-care (01) ==
LOC: WC 11:30
PROVIDERS: PCP Internal Medicine; Visit Provider Nurse Practitioner Family
DX: E11.621 Type 2 diabetes mellitus with foot ulcer (principal); E11.622 Type 2 diabetes mellitus with other skin ulcer; L97.912 Non-pressure chronic ulcer of unspecified part of right lower leg with fat layer exposed; L98.492 Non-pressure chronic ulcer of skin of other sites with fat layer exposed; L97.802 Non-pressure chronic ulcer of other part of unspecified lower leg with fat layer exposed; L97.512 Non-pressure chronic ulcer of other part of right foot with fat layer exposed; L97.812 Non-pressure chronic ulcer of other part of right lower leg with fat layer exposed; R60.0 Localized edema; I10 Essential (primary) hypertension; F17.290 Nicotine dependence, other tobacco product, uncomplicated
CPT/HCPCS: 11042; 29581; 99213; G0463